=== PATIENT | male | born 1980 | race Caucasian/White ===

== ENCOUNTER 2019-12-21 13:06 | Outpatient (CLI) | payer MEDICARE, MEDICAID, SELFPAY ==
--- NOTE | 2019-12-21 13:15 | XR_ITS ---
WS: [id number] ABDOMEN 1 VIEW(S) HISTORY: Renal calcifications. COMPARISON: 12/18/2018 Normal bowel gas pattern. No suspicious calcifications or masses. No bone abnormality. XR/XR KUB [id number] IMPRESSION: Normal abdomen.
== END 2019-12-21 13:07 | disposition home or self-care (01) ==
PROVIDERS: Visit Provider Nurse Practitioner Family
DX: N20.0 Calculus of kidney (principal)
CPT/HCPCS: 74018; 80053; 81001; 87077; 87086; 87186

== ENCOUNTER → 2020-01-26 14:05 | Outpatient (BNVA) | payer MEDICARE, MEDICAID, SELFPAY | PROVIDERS: Visit Provider Nurse Practitioner Family | DX: N30.00 Acute cystitis without hematuria (principal) | CPT/HCPCS: 80053; 81001; 87077; 87086; 87186 ==

== ENCOUNTER → 2020-05-23 12:22 | Outpatient (BNVA) | payer MEDICARE, MEDICAID, SELFPAY | PROVIDERS: PCP Nurse Practitioner Family; Visit Provider Internal Medicine Cardiovascular Disease | DX: E78.5 Hyperlipidemia, unspecified (principal) | CPT/HCPCS: 80061; 80076 ==

== ENCOUNTER 2020-10-08 15:18 | Emergency (ER) | payer MEDICARE, MEDICAID, SELFPAY ==
[2020-10-08 15:38] VITALS: BP 182/123; PULSE 61; RESP 18; TEMP 37.2; O2SAT 96; BMI 49.8
--- NOTE | 2020-10-08 16:03 | CTR_ITS ---
PROCEDURE INFORMATION: Exam: CT Abdomen And Pelvis Without Contrast Exam date and time: 10/08/2020 4:30 PM Age: 40 years old Clinical indication: Abdominal pain; Left lower quadrant (llq); Patient HX: C/O llq/l flank pain w HX of stones; Additional info: Left flank pain, HX of stones TECHNIQUE: Imaging protocol: Computed tomography of the abdomen and pelvis without contrast. Radiation optimization: All CT scans at this facility use at least one of these dose optimization techniques: automated exposure control; mA and/or kV adjustment per patient size (includes targeted exams where dose is matched to clinical indication); or iterative reconstruction. COMPARISON: CT Abdomen/Pelvis Renal [id number] 07/25/2016 9:55 AM RADIATION DOSE METRICS: Total DLP (mGy-cm): 2118.73 FINDINGS: Liver: Normal. No mass. Gallbladder and bile ducts: Normal. No calcified stones. No ductal dilation. Pancreas: Normal. No ductal dilation. Spleen: Normal. No splenomegaly. Adrenal glands: Normal. No mass. Kidneys and ureters: Small nonobstructing stone in the upper pole of the left kidney. Tiny nonobstructing stone in the lower pole of the right kidney. No hydronephrosis. No perinephric inflammation. Stomach and bowel: Diverticulosis coli. No focal inflammatory wall thickening of bowel loops. Negative for bowel obstruction or perforation. Appendix: Unremarkable appendix. Intraperitoneal space: No mesenteric inflammation. Vasculature: Unremarkable. No abdominal aortic aneurysm. Lymph nodes: Unremarkable. No enlarged lymph nodes. Urinary bladder: Unremarkable as visualized. Reproductive: Unremarkable as visualized. Bones/joints: Unremarkable. No acute fracture. Soft tissues: Paraspinal muscles are unremarkable. Ventral abdominal wall intact. CT/CT kidney stone [id number] IMPRESSION: 1. No acute pathology within the abdomen or pelvis identified. 2. Small nonobstructing bilateral kidney stones. Radiation Dose CTDIVOL = (mGy): DLP = 2118.73 (mGy-cm)
--- NOTE | 2020-10-08 16:45 | W.ED.MALEGU ---
Documented by User: LUANA Maxwell 10/08/20 16:48 HPI - Male Genitourinary General: Chief complaint: Urogenital-Male Stated complaint: suspects kidney stones Time Seen by Provider: 10/08/20 15:48 History of Present Illness: HPI Narrative: Patient complains about left flank pain rating down left testicle. Abdominal discomfort. Says gone on for since this morning. Said he is not had any hematuria. Says he has a history of kidney stones. Denies any nausea problems with his bowels but has had bowel movements that have felt uncomfortable. He denies any fever chills. No problems with urination MD Complaint: other (Flank pain) Onset (ago): hour(s) Duration: constant Location: left testicle and left flank Severity: moderate Severity scale (1-10): 6 Quality: dull Relieving factors: none Exacerbating factors: none Associated symptoms: Deny nausea or vomiting Review of Systems Const: Denies: fever(s), chills or body aches Eyes: Denies: change in vision or blurry vision ENMT: Denies: throat pain or nasal congestion Card: Denies: chest pain or dyspnea on exertion Resp: Denies: dyspnea, productive cough or non-productive cough GI: Reports: abdominal pain; Denies: nausea or vomiting : Reports: flank pain (Left side); Denies: difficulty urinating Musc: Denies: extremity pain Skin/Breast: Denies: rash Neuro: Denies: headache(s) Psych: Denies: anxiety or depression Donal/Lymph: Denies: easy bruising PFSH ED PFSH: Medical History Acute cystitis ASHD (arteriosclerotic heart disease) Atypical chest pain Chronic back pain Dyslipidemia GERD (gastroesophageal reflux disease) Gross hematuria Hyperlipidemia Hypertension Morbid obesity Urolithiasis Surgical History H/O eye surgery H/O knee surgery H/O lithotripsy Family History Mother , 52 CAD (coronary artery disease) Cancer lung, colon Father , 60 Cancer CAD (coronary artery disease) Hypertension Other Lung disease Stroke Denies family history of Anesthesia complication Bleeding disorder Social History Smoking and tobacco status: former smoker Alcohol intake: never Marital status: Current occupational status: disabled History of recent travel: No Physical Exam Narrative: EXAM NARRATIVE: Obese gentleman with tenderness in the abdomen left flank hard to reproduce pain due to size Const: COMMON NORMALS: no acute distress, average body habitus and patient oriented x3 HENMT: COMMON NORMALS: normocephalic HEAD & SCALP: normal to inspection and normocephalic FACE & SINUS: normal facial exam Eye: COMMON NORMALS: conjunctivae normal GENERAL EYE: appearance normal, both eyes and all related structures CONJUNCTIVA: Yes conjunctivae normal Neck/C-Spine: COMMON NORMALS: no JVD Chest: COMMONS NORMALS: normal inspection of the chest Resp: COMMON NORMALS: normal respiratory effort and clear to auscultation bilaterally AUSCULTATION: clear to auscultation bilaterally Cardio: COMMON NORMALS: no JVD, regular rate and regular rhythm RATE: regular rate RHYTHM: regular rhythm GI: COMMON NORMALS: Normal to inspection, nondistended, normoactive bowel sounds present PALPATION: Yes Tenderness to palpation present (GI) Details: LLQ : BLADDER/KIDNEY EXAM: Yes CVA tenderness on the left Back/Pelvis: GENERAL BACK: Yes CVA tenderness Extremity: COMMON NORMALS: normal to inspection and full ROM Neuro: COMMON NORMALS: patient oriented x3 Course Vital Signs: Vital signs: Vital Signs Temperature 98.9 F 10/08/20 15:38 Pulse Rate 56 L 10/08/20 18:08 Respiratory Rate 16 10/08/20 18:08 Blood Pressure 154/73 10/08/20 18:08 Pulse Oximetry 97 10/08/20 18:08 MDM - Male Lab Data: Labs: Lab Results 10/08/20 10/08/20 10/08/20 Range/Units 14:40 16:25 16:25 WBC 10.9 H (4.0-10.0) 10^3/ uL RBC 5.89 H (4.1-5.3) 10^6/u L Hgb 16.8 H (11.7-16.6) g/dL Hct 52.3 H (42.0-52.0) % MCV 88.8 (80-94) fL MCH 28.5 (28.0-34.0) pg MCHC 32.1 (30.0-36.0) g/dL RDW 13.2 (12.1-15.1) % Plt Count 386 (130-400) 10^3/c mm MPV 11.3 H (7.4-10.4) fL Neut % (Auto) 63.1 % Lymph % (Auto) 24.9 % [place] % (Auto) 7.7 % Eos % (Auto) 3.2 % Baso % (Auto) 0.7 % Neut # (Auto) 6.85 (1.8-7.7) 10^3/u L Lymph # (Auto) 2.7 (0.8-4.8) 10^3/u L [place] # (Auto) 0.8 (0.2-0.9) 10^3/u L Eos # (Auto) 0.4 (0.0-0.8) 10^3/u L Baso # (Auto) 0.1 (0.0-0.1) 10^3/u L Nucleated RBC % (a uto) 0 % Nucleated RBCs # 0.0 /100WBC Sodium 136 (136-145) mmol/L Potassium 3.7 (3.5-5.1) mmol/L Chloride 99 (98-107) mmol/L Carbon Dioxide 30 H (22-29) mmol/L Anion Gap 10.7 (5-19) BUN 10 (6-20) mg/dL Creatinine 0.7 (0.7-1.2) mg/dL GFR Calculation 124.9 (90-130) mL/min Glucose 83 (65-115) mg/dL Calculated Osmolal ity 280 L (285-295) mOsm/k g Calcium 9.2 (8.5-10.5) mg/dL Total Bilirubin 0.5 (0.15-1.2) mg/dL AST 22 (0-40) U/L ALT 28 (0-41) U/L Alkaline Phosphata se 84 (40-130) IU/L Total Protein 7.4 (6.6-8.7) g/dL Albumin 4.1 (3.5-5.2) g/dL Globulin 3.3 (1.3-4.6) g/dL Lipase 23 (13-60) U/L Urine Color Yellow (Yellow) Urine Appearance Clear (CLEAR) Urine pH 8 H (5-7) Ur Specific Gravit y 1.020 (1.005-1.030) Urine Protein Neg (Negative) Urine Glucose (UA) Norm (Normal) Urine Ketones Negative (Negative) Urine Blood Neg (Negative) Urine Nitrate Negative (Negative) Urine Bilirubin Neg (Negative) Prot Sulfosalicyli c Acd Negative (Negative) Urine Urobilinogen Norm (Negative) mg/dL Ur Leukocyte Emilia ase Negative (Negative) Discharge Plan Discharge Patient Disposition: Home Clinical Impression: Abdominal pain Qualifiers: Abdominal location: lower abdomen, unspecified Qualified Code(s): R10.30 - Lower abdominal pain, unspecified Condition: Stable Prescriptions: No Action ibuprofen 200 mg tablet 200 mg PO Q6H PRNRF: 0 Dexilant 30 mg capsule,biphase delayed releas 30 mg PO ONCE RF: 0 celecoxib 200 mg capsule 200 mg PO BID RF: 0 metoclopramide HCl 10 mg tablet 10 mg PO Q6H PRNRF: 0 phenazopyridine [Pyridium] 200 mg tablet 200 mg PO TID PRN (Reason: pain) Qty: 9 RF: 0 amlodipine 5 mg tablet 5 mg PO BID Qty: 180 RF: 3 chlorthalidone 25 mg tablet 25 mg PO QDAY Qty: 90 RF: 3 spironolactone 25 mg tablet 25 mg PO DAILY Qty: 180 RF: 2 hydralazine 100 mg tablet 100 mg PO BID Qty: 180 RF: 3 doxycycline hyclate 100 mg capsule 100 mg PO BID Qty: 28 RF: 0 isosorbide dinitrate 30 mg tablet See Rx Instructions .ROUTE .COMPLEX Qty: 180 RF: 3 carvedilol 25 mg tablet 25 mg PO BID Qty: 180 RF: 3 simvastatin 20 mg tablet See Rx Instructions .ROUTE .COMPLEX Qty: 90 RF: 3 Discharge Orders: Discharge ED (Routine); Ordered 10/08/20 Ordered By: Silvestre Ramos Referrals: Manuelito Carpio NP [Primary Care Provider] - Discharge Diet: Advance as tolerated Discharge Activity: Resume usual activity Patient Instructions: Abdominal Pain (ED) Activity Restrictions/Additional Instructions: Follow-up with medical provider as directed in 7 to 10 days for reevaluation. Continue taking all home medications as prescribed. Return to the ER or your medical provider if condition worsens. Please read and understand discharge instructions. If any questions, please ask. Sign Out Sign Out Data: Patient Sign Out occurred on 10/08/20 at 17:35. Patient's care was discussed, and care was transferred from to ROLY Salcido. Coding Level of Care Code ED Mri Manager for Chg Fwd Exam Comprehensive Documented by User: ROLY Salcido 10/09/20 01:22 HPI - Male Genitourinary General: Chief complaint: Urogenital-Male Stated complaint: suspects kidney stones Time Seen by Provider: 10/08/20 15:48 PFSH ED PFSH: Medical History Acute cystitis ASHD (arteriosclerotic heart disease) Atypical chest pain Chronic back pain Dyslipidemia GERD (gastroesophageal reflux disease) Gross hematuria Hyperlipidemia Hypertension Morbid obesity Urolithiasis Surgical History H/O eye surgery H/O knee surgery H/O lithotripsy Family History Mother , 52 CAD (coronary artery disease) Cancer lung, colon Father , 60 Cancer CAD (coronary artery disease) Hypertension Other Lung disease Stroke Denies family history of Anesthesia complication Bleeding disorder Social History Smoking and tobacco status: former smoker Alcohol intake: never Marital status: Current occupational status: disabled History of recent travel: No Course Vital Signs: Vital signs: Vital Signs Temperature 98.9 F 10/08/20 15:38 Pulse Rate 56 L 10/08/20 18:08 Respiratory Rate 16 10/08/20 18:08 Blood Pressure 154/73 10/08/20 18:08 Pulse Oximetry 97 10/08/20 18:08 MDM - Male MDM Narrative: Medical decision making narrative: I took over patient case at 5 PM from [facility]. Patient comes to the ED with abdominal pain. Patient has a history of kidney stones. Left lower quadrant tenderness upon abdominal exam. White blood cell count 10.9 rest of CBC and CMP were unremarkable. UA unremarkable. Lipase in normal range. CT of abdomen shows no acute findings. Patient's abdominal pain improved with Toradol and IV fluids. Patient was diagnosed with abdominal pain and discharged home. Is told to follow-up with PCP in 7 to 10 days for reevaluation. Return to ED precautions given. Patient understood and agree with plan. Lab Data: Attestation: I reviewed the patient's lab results. Labs: Lab Results 10/08/20 10/08/20 10/08/20 Range/Units 14:40 16:25 16:25 WBC 10.9 H (4.0-10.0) 10^3/ uL RBC 5.89 H (4.1-5.3) 10^6/u L Hgb 16.8 H (11.7-16.6) g/dL Hct 52.3 H (42.0-52.0) % MCV 88.8 (80-94) fL MCH 28.5 (28.0-34.0) pg MCHC 32.1 (30.0-36.0) g/dL RDW 13.2 (12.1-15.1) % Plt Count 386 (130-400) 10^3/c mm MPV 11.3 H (7.4-10.4) fL Neut % (Auto) 63.1 % Lymph % (Auto) 24.9 % [place] % (Auto) 7.7 % Eos % (Auto) 3.2 % Baso % (Auto) 0.7 % Neut # (Auto) 6.85 (1.8-7.7) 10^3/u L Lymph # (Auto) 2.7 (0.8-4.8) 10^3/u L [place] # (Auto) 0.8 (0.2-0.9) 10^3/u L Eos # (Auto) 0.4 (0.0-0.8) 10^3/u L Baso # (Auto) 0.1 (0.0-0.1) 10^3/u L Nucleated RBC % (a uto) 0 % Nucleated RBCs # 0.0 /100WBC Sodium 136 (136-145) mmol/L Potassium 3.7 (3.5-5.1) mmol/L Chloride 99 (98-107) mmol/L Carbon Dioxide 30 H (22-29) mmol/L Anion Gap 10.7 (5-19) BUN 10 (6-20) mg/dL Creatinine 0.7 (0.7-1.2) mg/dL GFR Calculation 124.9 (90-130) mL/min Glucose 83 (65-115) mg/dL Calculated Osmolal ity 280 L (285-295) mOsm/k g Calcium 9.2 (8.5-10.5) mg/dL Total Bilirubin 0.5 (0.15-1.2) mg/dL AST 22 (0-40) U/L ALT 28 (0-41) U/L Alkaline Phosphata se 84 (40-130) IU/L Total Protein 7.4 (6.6-8.7) g/dL Albumin 4.1 (3.5-5.2) g/dL Globulin 3.3 (1.3-4.6) g/dL Lipase 23 (13-60) U/L Urine Color Yellow (Yellow) Urine Appearance Clear (CLEAR) Urine pH 8 H (5-7) Ur Specific Gravit y 1.020 (1.005-1.030) Urine Protein Neg (Negative) Urine Glucose (UA) Norm (Normal) Urine Ketones Negative (Negative) Urine Blood Neg (Negative) Urine Nitrate Negative (Negative) Urine Bilirubin Neg (Negative) Prot Sulfosalicyli c Acd Negative (Negative) Urine Urobilinogen Norm (Negative) mg/dL Ur Leukocyte Emilia ase Negative (Negative) Imaging Data: CT Abd/Pel: Attestation: I personally reviewed and interpreted this imaging study as follows: Radiologist's impression: [address] [place] [address] CT Scan Report Signed Patient: Gregorio Romero Unit #: [id number] : 1980 Age/Sex: 40 / M ADM Date: 10/08/20 Loc: ER Room/Bed: Attending Dr: Ordering Provider/Ordering MD: Juan Rodriguez Sr, [employer]KER- Date of Service: 10/08/20 Procedure(s): CT kidney stone [id number] Accession Number(s): [id number] Report Number: [id number] PROCEDURE INFORMATION: Exam: CT Abdomen And Pelvis Without Contrast Exam date and time: 10/08/2020 4:30 PM Age: 40 years old Clinical indication: Abdominal pain; Left lower quadrant (llq); Patient HX: C/O llq/l flank pain w HX of stones; Additional info: Left flank pain, HX of stones TECHNIQUE: Imaging protocol: Computed tomography of the abdomen and pelvis without contrast. Radiation optimization: All CT scans at this facility use at least one of these dose optimization techniques: automated exposure control; mA and/or kV adjustment per patient size (includes targeted exams where dose is matched to clinical indication); or iterative reconstruction. COMPARISON: CT Abdomen/Pelvis Renal [id number] 07/25/2016 9:55 AM RADIATION DOSE METRICS: Total DLP (mGy-cm): 2118.73 FINDINGS: Liver: Normal. No mass. Gallbladder and bile ducts: Normal. No calcified stones. No ductal dilation. Pancreas: Normal. No ductal dilation. Spleen: Normal. No splenomegaly. Adrenal glands: Normal. No mass. Kidneys and ureters: Small nonobstructing stone in the upper pole of the left kidney. Tiny nonobstructing stone in the lower pole of the right kidney. No hydronephrosis. No perinephric inflammation. Stomach and bowel: Diverticulosis coli. No focal inflammatory wall thickening of bowel loops. Negative for bowel obstruction or perforation. Appendix: Unremarkable appendix. Intraperitoneal space: No mesenteric inflammation. Vasculature: Unremarkable. No abdominal aortic aneurysm. Lymph nodes: Unremarkable. No enlarged lymph nodes. Urinary bladder: Unremarkable as visualized. Reproductive: Unremarkable as visualized. Bones/joints: Unremarkable. No acute fracture. Soft tissues: Paraspinal muscles are unremarkable. Ventral abdominal wall intact. CT/CT kidney stone [id number] IMPRESSION: 1. No acute pathology within the abdomen or pelvis identified. 2. Small nonobstructing bilateral kidney stones. Radiation Dose CTDIVOL = (mGy): DLP = 2118.73 (mGy-cm) Dictated By: Dante Thompson Signed By: Dante Thompson Signed Date/Time: 10/08/201649 DD/ 47 Discharge Plan Discharge Patient Disposition: Home Clinical Impression: Abdominal pain Qualifiers: Abdominal location: lower abdomen, unspecified Qualified Code(s): R10.30 - Lower abdominal pain, unspecified Condition: Stable Prescriptions: No Action ibuprofen 200 mg tablet 200 mg PO Q6H PRNRF: 0 Dexilant 30 mg capsule,biphase delayed releas 30 mg PO ONCE RF: 0 celecoxib 200 mg capsule 200 mg PO BID RF: 0 metoclopramide HCl 10 mg tablet 10 mg PO Q6H PRNRF: 0 phenazopyridine [Pyridium] 200 mg tablet 200 mg PO TID PRN (Reason: pain) Qty: 9 RF: 0 amlodipine 5 mg tablet 5 mg PO BID Qty: 180 RF: 3 chlorthalidone 25 mg tablet 25 mg PO QDAY Qty: 90 RF: 3 spironolactone 25 mg tablet 25 mg PO DAILY Qty: 180 RF: 2 hydralazine 100 mg tablet 100 mg PO BID Qty: 180 RF: 3 doxycycline hyclate 100 mg capsule 100 mg PO BID Qty: 28 RF: 0 isosorbide dinitrate 30 mg tablet See Rx Instructions .ROUTE .COMPLEX Qty: 180 RF: 3 carvedilol 25 mg tablet 25 mg PO BID Qty: 180 RF: 3 simvastatin 20 mg tablet See Rx Instructions .ROUTE .COMPLEX Qty: 90 RF: 3 Discharge Orders: Discharge ED (Routine); Ordered 10/08/20 Ordered By: Silvestre Ramos Referrals: Manuelito Carpio NP [Primary Care Provider] - Discharge Diet: Advance as tolerated Discharge Activity: Resume usual activity Patient Instructions: Abdominal Pain (ED) Activity Restrictions/Additional Instructions: Follow-up with medical provider as directed in 7 to 10 days for reevaluation. Continue taking all home medications as prescribed. Return to the ER or your medical provider if condition worsens. Please read and understand discharge instructions. If any questions, please ask. Sign Out Sign Out Data: Patient Sign Out occurred on 10/08/20 at 17:35. Patient's care was discussed, and care was transferred from to ROLY Salcido. Coding Level of Care Code ED Mri Manager for Alejandro Fwmanolo Exam Comprehensive
[2020-10-08 16:50] VITALS: BP 161/79; PULSE 59; O2SAT 97
[2020-10-08] MEDS: ketorolac 30 mg/mL INJ IVP (16:57)
[2020-10-08] MEDS: sodium chloride 0.9% 1,000 ML 999 ML IV (16:58)
[2020-10-08 17:10] LABS: Basophils # 0.1 10^3/uL (0.0-0.1); Basophils % 0.7 %; Eosinophils # 0.4 10^3/uL (0.0-0.8); Eosinophils % 3.2 %; Hematocrit 52.3 % (42.0-52.0); Hemoglobin 16.8 g/dL (11.7-16.6); Lymphocytes # 2.7 10^3/uL (0.8-4.8); Lymphocytes % 24.9 %; Mean Corpuscular HGB Conc 32.1 g/dL (30.0-36.0); Mean Corpuscular Hemoglobin 28.5 pg (28.0-34.0); Mean Corpuscular Volume 88.8 fL (80-94); Mean Platelet Volume 11.3 fL (7.4-10.4); Monocytes # 0.8 10^3/uL (0.2-0.9); Monocytes % 7.7 %; Neutrophils # 6.85 10^3/uL (1.8-7.7); Neutrophils % 63.1 %; Nucleated Red Blood Cells % 0 %; Platelet Count 386 10^3/cmm (130-400); Red Blood Count 5.89 10^6/uL (4.1-5.3); Red Cell Distribution Width 13.2 % (12.1-15.1); White Blood Count 10.9 10^3/uL (4.0-10.0)
[2020-10-08 17:11] LABS: Alanine Aminotransferase 28 U/L (0-41); Albumin Level 4.1 g/dL (3.5-5.2); Alkaline Phosphatase 84 IU/L (40-130); Anion Gap 10.7 (5-19); Aspartate Amino Transferase 22 U/L (0-40); Blood Urea Nitrogen 10 mg/dL (6-20); Calcium 9.2 mg/dL (8.5-10.5); Carbon Dioxide 30 mmol/L (22-29); Chloride 99 mmol/L (98-107); Globulin 3.3 g/dL (1.3-4.6); Glomerular Filtration Rate 124.9 mL/min (90-130); Glucose 83 mg/dL (65-115); Lipase 23 U/L (13-60); Osmolality Calculated 280 mOsm/kg (285-295); Potassium 3.7 mmol/L (3.5-5.1); Sodium 136 mmol/L (136-145); Total Bilirubin 0.5 mg/dL (0.15-1.2); Total Protein 7.4 g/dL (6.6-8.7)
[2020-10-08 17:20] VITALS: BP 160/85; PULSE 56; O2SAT 95
[2020-10-08 17:49] LABS: Add Urine Microscopic? NO; Bilirubin Urine Neg (Negative); Blood Urine Neg (Negative); Glucose Urine UA Norm (Normal); Ketones Urine Negative (Negative); Leukocyte Esterase Urine Negative (Negative); Nitrate Urine Negative (Negative); Protein Urine Neg (Negative); Sulfosalicylic Acid Urine Negative (Negative); Urine Appearance Clear (CLEAR); Urine Color Yellow (Yellow); Urobilinogen Urine Norm (Negative); pH Urine 8 (5-7)
[2020-10-08 18:08] VITALS: BP 154/73; PULSE 56; RESP 16; O2SAT 97
== END 2020-10-08 18:09 | disposition home or self-care (01) ==
PROVIDERS: Nurse Practitioner Family; Emergency Provider Physician Assistant; PCP Nurse Practitioner Family
DX: R10.30 Lower abdominal pain, unspecified (principal); E78.5 Hyperlipidemia, unspecified; I10 Essential (primary) hypertension; Z87.891 Personal history of nicotine dependence
CPT/HCPCS: 74176; 80053; 81003; 83690; 85025; 96361; 96374; 99283; J1885; J7030

== ENCOUNTER 2020-10-17 13:57 | Outpatient (CLI) | payer MEDICARE, MEDICAID, SELFPAY ==
--- NOTE | 2020-10-17 13:45 | XR_ITS ---
WS: [id number] Exam: XR KUB [id number] Date/Time of Exam: 10/17/2020 2:08 PM Reason For Exam: UROLITHIASIS No bowel obstruction or free air. Visualized organ margins are intact. Nonspecific 3 mm left pelvic c alcification noted just below the left SI joint. Bony structures are unremarkable. XR/XR KUB [id number] IMPRESSION: 1. No acute abdominal process. 2. Nonspecific 3 mm left pelvic calcification.
== END 2020-10-17 13:58 | disposition home or self-care (01) ==
LOC: RAD 13:59
PROVIDERS: PCP Nurse Practitioner Family; Visit Provider Urology
DX: N20.9 Urinary calculus, unspecified (principal)
CPT/HCPCS: 74018; 81003

== ENCOUNTER 2020-10-22 01:51 | Emergency (ER) | payer MEDICARE, MEDICAID, SELFPAY ==
[2020-10-22] VITALS (9 sets, daily range): BP systolic 112–149; BP diastolic 64–85; PULSE 63–75; RESP 14–28; TEMP 36.9; O2SAT 90–95; BMI 49.8
[2020-10-22 02:38] LABS: Basophils # 0.1 10^3/uL (0.0-0.1); Basophils % 0.8 %; Eosinophils # 0.4 10^3/uL (0.0-0.8); Eosinophils % 2.9 %; Hematocrit 48.1 % (42.0-52.0); Hemoglobin 15.4 g/dL (11.7-16.6); Lymphocytes # 3.7 10^3/uL (0.8-4.8); Lymphocytes % 27.1 %; Mean Corpuscular Hemoglobin 28.9 pg (28.0-34.0); Mean Corpuscular Volume 90.2 fL (80-94); Mean Platelet Volume 11.6 fL (7.4-10.4); Monocytes % 7.3 %; Neutrophils # 8.31 10^3/uL (1.8-7.7); Neutrophils % 61.5 %; Nucleated Red Blood Cells % 0 %; Platelet Count 369 10^3/cmm (130-400); Red Blood Count 5.33 10^6/uL (4.1-5.3); Red Cell Distribution Width 13.2 % (12.1-15.1); White Blood Count 13.5 10^3/uL (4.0-10.0)
--- NOTE | 2020-10-22 02:52 | CTR_ITS ---
PROCEDURE INFORMATION: Exam: CT Abdomen And Pelvis With Contrast Exam date and time: 10/22/2020 3:05 AM Age: 40 years old Clinical indication: Abdominal pain; Localized; Left lower quadrant (llq); Patient HX: Llq pain. Frequent history of nephrolithiasis; Additional info: Abd pain TECHNIQUE: Imaging protocol: Computed tomography of the abdomen and pelvis with contrast. Radiation optimization: All CT scans at this facility use at least one of these dose optimization techniques: automated exposure control; mA and/or kV adjustment per patient size (includes targeted exams where dose is matched to clinical indication); or iterative reconstruction. Contrast material: OMNI 300; Contrast volume: 95 ml; Contrast route: INTRAVENOUS (IV); COMPARISON: CT kidney stone [id number] 10/08/2020 4:50 PM RADIATION DOSE METRICS: Total DLP (mGy-cm): 2122.96 FINDINGS: Liver: Normal. No mass. Gallbladder and bile ducts: Normal. No calcified stones. No ductal dilation. Pancreas: Normal. No ductal dilation. Spleen: Normal. No splenomegaly. Adrenal glands: Normal. No mass. Kidneys and ureters: A tiny nonobstructing stone is seen in the left kidney. No hydronephrosis. Stomach and bowel: Unremarkable. No obstruction. Diverticulosis of the colon is seen without diverticulitis. Appendix: No evidence of appendicitis. Intraperitoneal space: Unremarkable. No free air. No significant fluid collection. Vasculature: Unremarkable. No abdominal aortic aneurysm. Lymph nodes: Unremarkable. No enlarged lymph nodes. Urinary bladder: Unremarkable as visualized. Reproductive: Unremarkable as visualized. Bones/joints: Degenerative changes are present. No acute fracture. Soft tissues: Unremarkable. CT/CT abdomen pelvis w con* [id number] IMPRESSION: 1. No acute findings. 2. A nonobstructing tiny stone is seen in the left kidney. Negative for hydronephrosis. 3. In diverticulosis of the colon is seen without diverticulitis Radiation Dose CTDIVOL = (mGy): DLP = 2122.96 (mGy-cm)
[2020-10-22 03:12] LABS: Alanine Aminotransferase 25 U/L (0-41); Albumin Level 3.5 g/dL (3.5-5.2); Alkaline Phosphatase 77 IU/L (40-130); Anion Gap 13.3 (5-19); Aspartate Amino Transferase 20 U/L (0-40); Blood Urea Nitrogen 12 mg/dL (6-20); C Reactive Protein 16.7 mg/L (0.0-4.9); Calcium 8.6 mg/dL (8.5-10.5); Carbon Dioxide 25 mmol/L (22-29); Chloride 100 mmol/L (98-107); Creatinine Clr Calc Pharmacy 225.1104; Globulin 3.1 g/dL (1.3-4.6); Glomerular Filtration Rate 107.1 mL/min (90-130); Glucose 118 mg/dL (65-115); Lipase 25 U/L (13-60); Osmolality Calculated 281 mOsm/kg (285-295); Potassium 3.3 mmol/L (3.5-5.1); Sodium 135 mmol/L (136-145); Total Bilirubin 0.3 mg/dL (0.15-1.2); Total Protein 6.6 g/dL (6.6-8.7)
[2020-10-22] MEDS: iohexol 300 mg/mL 100 mL Btl IV (03:13)
[2020-10-22 03:14] LABS: Lactate (Lactic Acid level) 1.4 mmol/L (0.5-2.2)
[2020-10-22 03:16] LABS: Alcohol Level < 10 mg/dL (0-10)
[2020-10-22 03:18] LABS: INR 1.05 (0.8-1.2)
--- NOTE | 2020-10-22 03:24 | ED_ITS ---
HPI - Abdominal Pain General: Chief Complaint: Abdominal Pain Stated Complaint: n,v Time Seen by Provider: 10/22/20 02:03 History of Present Illness: HPI narrative: 40-year-old male presents with sudden onset of belly pain this morning. About an hour prior to arrival. He complains of epigastric pain radiating into his chest. He states that he vomited 3 times, and there was blood in the contents of the vomitus. He says there were small clots present. No diarrhea, no blood in the stool. No fever. MD elicited complaint: abdominal pain Pertinent past history: other Onset (ago): hour(s) Pain Consistency: constant Location: Epigastric Severity: moderate Quality: stabbing Radiation: chest Migration to: no migration Exacerbating factors: movement Relieving factors: nothing Associated Symptoms: Reports hematemesis, nausea and vomiting; Denies diarrhea, fever(s), hematochezia, hematuria and syncope Review of Systems Const: Denies: fever(s) ENMT: Denies: throat pain Card: Reports: chest pain; Denies: palpitations, irregular heart rhythm or syncope Resp: Denies: dyspnea, productive cough or non-productive cough GI: Reports: nausea, vomiting and hematemesis; Denies: diarrhea or hematochezia : Denies: hematuria Neuro: Denies: headache(s) PFSH ED PFSH: Medical History Acute cystitis ASHD (arteriosclerotic heart disease) Atypical chest pain Chronic back pain Dyslipidemia GERD (gastroesophageal reflux disease) Gross hematuria Hyperlipidemia Hypertension Morbid obesity Prostatitis Urolithiasis Surgical History H/O eye surgery H/O knee surgery H/O lithotripsy Family History Mother , 52 CAD (coronary artery disease) Cancer lung, colon Father , 60 Cancer CAD (coronary artery disease) Hypertension Other Lung disease Stroke Denies family history of Anesthesia complication Bleeding disorder Social History Smoking and tobacco status: former smoker Alcohol intake: never Marital status: Current occupational status: disabled History of recent travel: No Physical Exam Const: GENERAL APPEARANCE: well developed ORIENTATION/CONSCIOUSNESS: Yes oriented to person, Yes oriented to place and Yes oriented to time HENMT: COMMON NORMALS: normocephalic, external ears normal and Normal external nose present HEAD & SCALP: normocephalic FACE & SINUS: normal facial exam NOSE: Normal external nose present and No nasal discharge present EXTERNAL EAR: Yes external ears normal Eye: COMMON NORMALS: Equal, round and reactive pupils present, EOMs intact bilaterally and conjunctivae normal EYELID: eyelids normal CONJUNCTIVA: Yes conjunctivae normal PUPIL: Yes Equal, round and reactive pupils present Neck/C-Spine: GENERAL: No tracheal deviation Chest: COMMONS NORMALS: normal inspection of the chest CHEST: No tenderness Resp: COMMON NORMALS: clear to auscultation bilaterally EFFORT & INSPECTION: No tachypneic, No respiratory distress, No retractions, No uses accessory muscles and No tracheal deviation AUSCULTATION: clear to auscultation bilaterally, no rhonchi, no wheezes and lung sounds not diminished Cardio: COMMON NORMALS: regular rate and regular rhythm RATE: regular rate RHYTHM: regular rhythm HEART SOUNDS: no murmurs PERIPHERAL PULSES: radial pulses present GI: COMMON NORMALS: Soft to palpation INSPECTION: No abdominal distension AUSCULTATION: No Hyperactive bowel sounds present and No Hypoactive bowel soun ds present PALPATION: Yes Soft to palpation, Yes Tenderness to palpation present (GI) (Epigastric), No Guarding due to palpation present (GI) and No Rigid due to palpation PERCUSSION: no dullness to percussion and no tympanic to percussion : COMMON NORMALS: Yes no CVA tenderness BLADDER/KIDNEY EXAM: Yes no CVA tenderness Back/Pelvis: COMMON NORMALS: no CVA tenderness Neuro: SENSORIUM/ORIENTATION: Yes oriented to person, Yes oriented to place and Yes oriented to time Psych: COMMON NORMALS: mental status grossly normal Skin: COMMON NORMALS: no rashes or lesions noted GENERAL SKIN EXAM: no rashes or lesions noted Course Vital Signs: Vital signs: Vital Signs Temperature 98.5 F 10/22/20 01:54 Pulse Rate 73 10/22/20 03:31 Respiratory Rate 16 10/22/20 04:09 Blood Pressure 135/64 10/22/20 03:31 Pulse Oximetry 94 10/22/20 04:09 MDM - Abdominal Pain MDM Narrative: Medical decision making narrative: Epigastric pain radiating into the chest in a 40-year-old male who may or may not have vomited blood. His hemoglobin is 15.4. His white blood cell count is elevated at 13.5. His potassium is mildly low at 3.3. CT is pending Patient improved after GI cocktail and pain medication. CT did not reveal any acute finding. Gallbladder and bile ducts are normal. No gastric lining thickening. He has a GI appointment on 11/02. He needs close outpatient follow- up. Lab Data: Labs: Lab Results 10/22/20 10/22/20 10/22/20 Range/Units 02:04 02:04 02:04 WBC 13.5 H (4.0-10.0) 10^3/ uL RBC 5.33 H (4.1-5.3) 10^6/u L Hgb 15.4 (11.7-16.6) g/dL Hct 48.1 (42.0-52.0) % MCV 90.2 (80-94) fL MCH 28.9 (28.0-34.0) pg MCHC 32.0 (30.0-36.0) g/dL RDW 13.2 (12.1-15.1) % Plt Count 369 (130-400) 10^3/c mm MPV 11.6 H (7.4-10.4) fL Neut % (Auto) 61.5 % Lymph % (Auto) 27.1 % Arthur % (Auto) 7.3 % Eos % (Auto) 2.9 % Baso % (Auto) 0.8 % Neut # (Auto) 8.31 H (1.8-7.7) 10^3/u L Lymph # (Auto) 3.7 (0.8-4.8) 10^3/u L Arthur # (Auto) 1.0 H (0.2-0.9) 10^3/u L Eos # (Auto) 0.4 (0.0-0.8) 10^3/u L Baso # (Auto) 0.1 (0.0-0.1) 10^3/u L Nucleated RBC % (a uto) 0 % Nucleated RBCs # 0.0 /100WBC PT (12.1-14.9) SECO NDS INR (0.8-1.2) Sodium 135 L (136-145) mmol/L Potassium 3.3 L (3.5-5.1) mmol/L Chloride 100 (98-107) mmol/L Carbon Dioxide 25 (22-29) mmol/L Anion Gap 13.3 (5-19) BUN 12 (6-20) mg/dL Creatinine 0.8 (0.7-1.2) mg/dL GFR Calculation 107.1 (90-130) mL/min Glucose 118 H (65-115) mg/dL Calculated Osmolal ity 281 L (285-295) mOsm/k g Lactate 1.4 (0.5-2.2) mmol/L Calcium 8.6 (8.5-10.5) mg/dL Total Bilirubin 0.3 (0.15-1.2) mg/dL AST 20 (0-40) U/L ALT 25 (0-41) U/L Alkaline Phosphata se 77 (40-130) IU/L C-Reactive Protein 16.7 H (0.0-4.9) mg/L Total Protein 6.6 (6.6-8.7) g/dL Albumin 3.5 (3.5-5.2) g/dL Globulin 3.1 (1.3-4.6) g/dL Lipase 25 (13-60) U/L Ethyl Alcohol < 10 (0-10) mg/dL 10/22/20 Range/Units 02:04 WBC (4.0-10.0) 10^3/ uL RBC (4.1-5.3) 10^6/u L Hgb (11.7-16.6) g/dL Hct (42.0-52.0) % MCV (80-94) fL MCH (28.0-34.0) pg MCHC (30.0-36.0) g/dL RDW (12.1-15.1) % Plt Count (130-400) 10^3/c mm MPV (7.4-10.4) fL Neut % (Auto) % Lymph % (Auto) % Arthur % (Auto) % Eos % (Auto) % Baso % (Auto) % Neut # (Auto) (1.8-7.7) 10^3/u L Lymph # (Auto) (0.8-4.8) 10^3/u L Arthur # (Auto) (0.2-0.9) 10^3/u L Eos # (Auto) (0.0-0.8) 10^3/u L Baso # (Auto) (0.0-0.1) 10^3/u L Nucleated RBC % (a uto) % Nucleated RBCs # /100WBC PT 14.10 (12.1-14.9) SECO NDS INR 1.05 (0.8-1.2) Sodium (136-145) mmol/L Potassium (3.5-5.1) mmol/L Chloride (98-107) mmol/L Carbon Dioxide (22-29) mmol/L Anion Gap (5-19) BUN (6-20) mg/dL Creatinine (0.7-1.2) mg/dL GFR Calculation (90-130) mL/min Glucose (65-115) mg/dL Calculated Osmolal ity (285-295) mOsm/k g Lactate (0.5-2.2) mmol/L Calcium (8.5-10.5) mg/dL Total Bilirubin (0.15-1.2) mg/dL AST (0-40) U/L ALT (0-41) U/L Alkaline Phosphata se (40-130) IU/L C-Reactive Protein (0.0-4.9) mg/L Total Protein (6.6-8.7) g/dL Albumin (3.5-5.2) g/dL Globulin (1.3-4.6) g/dL Lipase (13-60) U/L Ethyl Alcohol (0-10) mg/dL Discharge Plan Discharge Patient Disposition: Home Clinical Impression: Gastritis Qualifiers: Gastritis type: unspecified gastritis Chronicity: acute Gastritis bleeding: with bleeding Qualified Code(s): K29.01 - Acute gastritis with bleeding Condition: Stable Prescriptions: New Carafate 1 gram tablet 1 g PO Q6H 28 Days Qty: 112 RF: 0 Zofran 4 mg tablet 4 mg PO Q6H PRN (Reason: nausea and vomiting) Qty: 10 RF: 0 No Action ibuprofen 200 mg tablet 200 mg PO Q6H PRNRF: 0 celecoxib 200 mg capsule 200 mg PO BID RF: 0 metoclopramide HCl 10 mg tablet 10 mg PO Q6H PRNRF: 0 phenazopyridine [Pyridium] 200 mg tablet 200 mg PO TID PRN (Reason: pain) Qty: 9 RF: 0 pantoprazole 40 mg tablet,delayed release (DR/EC) 40 mg PO DAILY RF: 0 amlodipine 5 mg tablet 5 mg PO BID Qty: 180 RF: 3 chlorthalidone 25 mg tablet 25 mg PO QDAY Qty: 90 RF: 3 spironolactone 25 mg tablet 25 mg PO DAILY Qty: 180 RF: 2 hydralazine 100 mg tablet 100 mg PO BID Qty: 180 RF: 3 isosorbide dinitrate 30 mg tablet See Rx Instructions .ROUTE .COMPLEX Qty: 180 RF: 3 carvedilol 25 mg tablet 25 mg PO BID Qty: 180 RF: 3 simvastatin 20 mg tablet See Rx Instructions .ROUTE .COMPLEX Qty: 90 RF: 3 Discharge Orders: Discharge ED (Routine); Ordered 10/22/20 Ordered By: Dhruv Fuentes Referrals: Manuelito Carpio NP [Primary Care Provider] - 1-3 days Discharge Diet: Advance as tolerated Discharge Activity: Increase activity as tolerated Patient Instructions: Gastritis (ED) Activity Restrictions/Additional Instructions: Return for worsening pain despite treatment, vomiting liquids or medications, continued blood in the vomit, blood in the stool, shortness of breath, fever greater than 100, other concerning symptoms. Coding Level of Care Code ED Asset Protection Representative for Alejandro Fwd Exam Comprehensive
[2020-10-22] MEDS: lidocaine 2% viscous 15 ML, aluminum-mag hydrox-simethicon 30 ML, sucralfate oral liq 1 GM PO (03:58)
[2020-10-22] MEDS: ondansetron 2 mg/ML SDV 2 mL 4 MG IVP (04:01)
[2020-10-22] MEDS: famotidine 20 mg/2 mL INJ 40 MG IVP (04:04)
[2020-10-22] MEDS: fentaNYL 50 mcg/mL INJ 2mL 100 MCG IVP (04:09)
[2020-10-22 05:17] LABS: Add Urine Microscopic? NO
[2020-10-22 05:18] LABS: Bilirubin Urine Neg (Negative); Blood Urine Neg (Negative); Glucose Urine UA Norm (Normal); Ketones Urine Negative (Negative); Leukocyte Esterase Urine Negative (Negative); Nitrate Urine Negative (Negative); Protein Urine Neg (Negative); Specific Gravity, Urine 1.015 (1.005-1.030); Urine Appearance Clear (CLEAR); Urine Color Yellow (Yellow); Urobilinogen Urine Norm (Negative); pH Urine 6 (5-7)
== END 2020-10-22 05:03 | disposition home or self-care (01) ==
PROVIDERS: Emergency Provider Emergency Medicine; PCP Nurse Practitioner Family
DX: K29.01 Acute gastritis with bleeding (principal); E78.5 Hyperlipidemia, unspecified; I10 Essential (primary) hypertension; Z87.891 Personal history of nicotine dependence
CPT/HCPCS: 74177; 80053; 80307; 81003; 83605; 83690; 85025; 85610; 86140; 96374; 96375; 99283; J2405; J3010; J3490; Q9967

== ENCOUNTER → 2020-11-08 13:22 | Outpatient (BNVA) | payer MEDICARE, MEDICAID, SELFPAY | PROVIDERS: PCP Nurse Practitioner Family; Visit Provider Urology | DX: N41.9 Inflammatory disease of prostate, unspecified (principal); N30.00 Acute cystitis without hematuria | CPT/HCPCS: 81003; 87077; 87086; 87184 ==

== ENCOUNTER → 2020-11-18 11:33 | Outpatient (BNVA) | payer MEDICARE, MEDICAID, SELFPAY | PROVIDERS: PCP Nurse Practitioner Family; Visit Provider Surgery | DX: K21.9 Gastro-esophageal reflux disease without esophagitis (principal); K62.5 Hemorrhage of anus and rectum; Z20.822 Contact with and (suspected) exposure to COVID-19 | CPT/HCPCS: 87635 ==

== ENCOUNTER 2020-11-23 06:07 | Day surgery (SDC) | payer MEDICARE, MEDICAID, SELFPAY ==
[2020-11-21 12:32] VITALS: BMI 49.8
[2020-11-23 06:18] VITALS: BP 107/105; PULSE 76; RESP 16; TEMP 36.3; O2SAT 96
--- NOTE | 2020-11-23 06:34 | W.PM.OPSUD ---
Surgery/Procedure H&P Update DATE OF PROCEDURE: November 23, 2020 DATE H&P PERFORMED: 11/02/20 H&P UPDATE INFORMATION: I have reviewed H&P completed within last 30 days, I have examined patient prior to procedure and No changes to prior documentation PREOP DIAGNOSIS: Hematemesis and bleeding per rectum PRIMARY INDICATION FOR PROCEDURE: The same PLANNED PROCEDURE: Operation Date: 11/23/20 07:00 Proposed Procedures p EGD/colon [id number] K21.9 K62.5(Not Applicable) - Taiwo Odom MD s Colonoscopy(Not Applicable) - Taiwo Odom MD
[2020-11-23] MEDS: sodium chloride 0.9% 1,000 ML 30 ML IV (06:45)
--- NOTE | 2020-11-23 06:53 | ANES.PREANE2 ---
Pre-Anesthetic Assessment Pre-Anesthetic Assessment: Height/Weight: Height 1.96 m Weight 190.509 kg Temp Pulse Resp BP Pulse Ox 97.4 F L 76 16 107/105 96 11/23/20 06:18 11/23/20 06:18 11/23/20 06:18 11/23/20 06:18 11/23/20 06:18 Preop Diagnosis: Hematemesis and bleeding per rectum Proposed Procedure: Operation Date: 11/23/20 07:00 Proposed Procedures p EGD/colon [id number] K21.9 K62.5(Not Applicable) - Taiwo Odom MD s Colonoscopy(Not Applicable) - Taiwo Odom MD Familial anesthetic complications: none Was Beta Reba taken within 24 hours: Yes Was Clonidine taken within 24 hours: N/A Last intake: Intake Last Liquid Date 11/22/20 Last Solid Date 11/21/20 Social: Social History: No alcohol and No tobacco Comment: stop 2003 Exam: Pre-Anes Outpt Exam: alert, oriented x 3, clear to auscultation bilaterally and regular rate & rhythm Airway: Submandibular: WNL Cervical ROM: WNL MP: 3 Dentition: Full Pulmonary: Pulmonary: COPD, Cough (chronic bronchitis) and Sleep apnea (CPAP) CV/HEM: CV/HEM: CHF, HTN and Murmur (ASD) : : None reported Hepatic: Hepatic: None reported GI: GI: GERD Metabolic: Metabolic: Morbid obesity Neuropsych: Neuropsych: None reported Anesthetic Plan: ASA status: 3 Anesthesia: MAC Meds/Allergies Current Medications: Current Medications Generic Name Dose Route Start Last Admin Trade Name Freq PRN Reason Stop Dose Admin Sodium Chloride 1,000 mls @ 30 ml s/hr 11/23/20 06:15 11/23/20 06:45 Sodium Chloride 0.9% IV 30 mls/hr .Q24H SHARMILA Administration PFSH Anesthesia PFSH: Medical History Acute cystitis ASHD (arteriosclerotic heart disease) Atypical chest pain Chronic back pain Dyslipidemia GERD (gastroesophageal reflux disease) Gross hematuria Hyperlipidemia Hypertension Morbid obesity Prostatitis Urolithiasis Surgical History H/O eye surgery H/O knee surgery H/O lithotripsy Family History Mother , 52 CAD (coronary artery disease) Cancer lung, colon Father , 60 Cancer CAD (coronary artery disease) Hypertension Other Lung disease Stroke Denies family history of Anesthesia complication Bleeding disorder Social History Smoking and tobacco status: former smoker Alcohol intake: never Marital status: Current occupational status: disabled History of recent travel: No Data Anesthesia Cardiac Studies: No Data to Display
[2020-11-23 08:04] VITALS: BP 118/59; PULSE 61; RESP 16; TEMP 36.1; O2SAT 94
[2020-11-23] MEDS: cetacaine Spray 5 gm Can 1 SPRAY XX (08:08)
--- NOTE | 2020-11-23 09:13 | ANE.PACU2 ---
Inpatient post-anesthesia follow up: Airway intact: Yes Vital signs: Temperature 97 F Pulse Rate 61 Respiratory Rate 16 Blood Pressure 118/59 Pulse Oximetry 94 Oxygen Delivery Me thod Room Air Oxygen Flow Rate Fraction of Inspir ed Oxygen Hydration adequate: Yes Nausea and vomiting: No Pain level: 1 Mental status: Baseline
== END 2020-11-23 08:40 | disposition home or self-care (01) ==
PROVIDERS: PCP Nurse Practitioner Family; Visit Provider Surgery
PROC: 0DJ08ZZ Inspection of Upper Intestinal Tract, Via Natural or Artificial Opening Endoscopic (ICD-10-PCS; CPT 43235; principal; 2020-11-23 07:00)
PROC: 0DJD8ZZ Inspection of Lower Intestinal Tract, Via Natural or Artificial Opening Endoscopic (ICD-10-PCS; CPT 45378; 2020-11-23 07:00)
DX: K92.0 Hematemesis (principal); K62.5 Hemorrhage of anus and rectum; K57.30 Diverticulosis of large intestine without perforation or abscess without bleeding; K31.7 Polyp of stomach and duodenum; K21.00 Gastro-esophageal reflux disease with esophagitis, without bleeding; K29.70 Gastritis, unspecified, without bleeding; E78.5 Hyperlipidemia, unspecified; K21.9 Gastro-esophageal reflux disease without esophagitis; E66.01 Morbid (severe) obesity due to excess calories; Z68.42 Body mass index [BMI] 45.0-49.9, adult; Z80.0 Family history of malignant neoplasm of digestive organs; J44.9 Chronic obstructive pulmonary disease, unspecified; I11.0 Hypertensive heart disease with heart failure; I50.9 Heart failure, unspecified; Z87.891 Personal history of nicotine dependence
CPT/HCPCS: 43239; 45380; 88305; 96360; 96361; J2405; J2704; J7030

== ENCOUNTER → 2020-12-05 12:56 | Outpatient (BNVA) | payer MEDICARE, MEDICAID, SELFPAY | PROVIDERS: PCP Nurse Practitioner Family; Visit Provider Nurse Practitioner Family | DX: N20.9 Urinary calculus, unspecified (principal); N41.9 Inflammatory disease of prostate, unspecified | CPT/HCPCS: 81003 ==

== ENCOUNTER 2021-01-25 13:40 | Outpatient (CLI) | payer MEDICARE, MEDICAID, SELFPAY ==
--- NOTE | 2021-01-25 13:15 | XR_ITS ---
WS: [id number] KUB, AP view, 01/25/2021 Clinical Data: N20.9 - Urinary calculus, unspecified Comparison: KUB, 10/17/2020. Findings: No abnormal intraabdominal masses or calcifications are seen. There is no dilatated small bowel or ev idence of obstruction. There is a calcification inferior to the left SI joint unchanged. XR/XR KUB [id number] Impression: Negative KUB.
== END 2021-01-25 13:41 | disposition home or self-care (01) ==
LOC: RAD 13:42
PROVIDERS: PCP Nurse Practitioner Family; Visit Provider Urology
DX: N20.9 Urinary calculus, unspecified (principal)
CPT/HCPCS: 74018; 81003

== ENCOUNTER 2021-03-22 16:58 | Outpatient (CLI) | payer MEDICARE, MEDICAID, SELFPAY ==
--- NOTE | 2021-03-22 17:03 | XR_ITS ---
WS: [id number] XR knee RT 3V* [id number] REASON FOR EXAM: RT. KNEE PAIN FINDINGS: There is minimal narrowing of the medial, lateral, and patellofemoral knee joint space. There is a calcified loose body in the anterior midline joint space. There is a vague lucency seen in the lateral aspect of the medial femoral condyle. There is a calcification in the medial collateral ligament near the medial femoral condyle attachment . 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 Calcification in the medial collateral ligament most likely posttraumatic degen erative change.
--- NOTE | 2021-03-22 17:04 | XR_ITS ---
WS: [id number] XR ankle RT min 3V* [id number] REASON FOR EXAM: RT. ANKLE PAIN FINDINGS: The ankle mortise is intact and relatively well-preserved. No subchondral bone or other focal bony abnormality identified. There is soft tissue swelling around the ankle. XR/XR ankle RT min 3V* [id number] IMPRESSION: No significant bony or joint abnormality.
== END 2021-03-22 16:59 | disposition home or self-care (01) ==
PROVIDERS: PCP Nurse Practitioner Family; Visit Provider Nurse Practitioner Family
DX: M25.571 Pain in right ankle and joints of right foot (principal); M25.561 Pain in right knee; M93.261 Osteochondritis dissecans, right knee
CPT/HCPCS: 73562; 73610

== ENCOUNTER → 2021-05-03 14:38 | Outpatient (BNVA) | payer MEDICARE, MEDICAID, SELFPAY | PROVIDERS: PCP Nurse Practitioner Family; Visit Provider Urology | DX: N41.9 Inflammatory disease of prostate, unspecified (principal); R31.0 Gross hematuria; N20.9 Urinary calculus, unspecified | CPT/HCPCS: 81003 ==

== ENCOUNTER → 2021-05-30 11:05 | Outpatient (BNVA) | payer MEDICARE, MEDICAID, SELFPAY | PROVIDERS: PCP Nurse Practitioner Family; Visit Provider Internal Medicine Cardiovascular Disease | DX: E78.2 Mixed hyperlipidemia (principal) | CPT/HCPCS: 80061 ==

== ENCOUNTER 2021-06-29 14:25 | Outpatient (CLI) | payer MEDICARE, MEDICAID, SELFPAY ==
--- NOTE | 2021-06-29 14:32 | XR_ITS ---
WS: [id number] KUB, AP view, 06/29/2021 Clinical Data: STONES Comparison: KUB, 01/25/2021 Findings: No abnormal intraabdominal masses or calcifications are seen. There is no dilatated small bowel or ev idence of obstruction. There is a small calcification inferior to the left SI joint unchanged. XR/XR KUB [id number] Impression: Negative KUB.
== END 2021-06-29 14:26 | disposition home or self-care (01) ==
LOC: RAD 14:30
PROVIDERS: PCP Nurse Practitioner Family; Visit Provider Nurse Practitioner Family
DX: N20.9 Urinary calculus, unspecified (principal)
CPT/HCPCS: 74018; 81003; 87077; 87086; 87184

== ENCOUNTER 2021-06-30 09:11 | Outpatient (CLI) | payer MEDICARE, MEDICAID, SELFPAY ==
--- NOTE | 2021-06-30 09:13 | MR_ITS ---
WS: [id number] MRI RIGHT KNEE HISTORY: INTERNAL DERANGEMENT RT KNEE, recent fall. COMPARISON: 03/14/2021 and 09/14/2017 Quality of this examination is limited by body habitus. Anterior cruciate ligament: Thinning of the ACL. Similar to the prior examination from 2018. No new t ear. Posterior cruciate ligament: Intact. Medial collateral ligament: Intact. Posterior lateral corner structures: Intact. Medial menisci: Intact. Normal signal, size and shape. Lateral meniscus: Intact. Normal signal, size and shape. Extensor mechanism: Distal quadriceps tendon is normal. Mild patellar tendinopathy. Fluid and soft tissue: Small suprapatellar joint effusion. No Velasco's cyst. Osseous and articular structures: Patellofemoral compartment: Mild lateral subluxation of the patella, similar to the prior study. Mild loss of cartilage but no marrow edema. Medial compartment: Mild thinning and fissuring of the cartilage. No marrow edema or fracture. Lateral compartment: Mild thinning and fissuring of the cartilage. No marrow edema. Well-circumscribed body in the anterior joint space measuring 8.5 mm. This corresponds to the abnorma lity seen radiographically over the tibial spines. No donor site is evident. MR/MR knee RT wo con* [id number] IMPRESSION: 1. Very mild internal derangement involving all 3 compartments. 2. Mild lateral subluxation of the patella. 3. No marrow edema or fracture. 4. Loose body in the anterior mid knee joint measuring 8.5 mm. May be a calcif ic deposit or bone fragment. No donor site is evident. This was also present on the prior study from 09/16/2017.
== END 2021-06-30 09:12 | disposition home or self-care (01) ==
PROVIDERS: PCP Nurse Practitioner Family; Visit Provider Orthopaedic Surgery
DX: M23.91 Unspecified internal derangement of right knee (principal); S83.011A Lateral subluxation of right patella, initial encounter; X58.XXXA Exposure to other specified factors, initial encounter
CPT/HCPCS: 73721

== ENCOUNTER → 2021-07-24 13:39 | Outpatient (BNVA) | payer MEDICARE, MEDICAID, SELFPAY | PROVIDERS: PCP Nurse Practitioner Family; Visit Provider Nurse Practitioner Family | DX: N52.9 Male erectile dysfunction, unspecified (principal) | CPT/HCPCS: 81003 ==

== ENCOUNTER 2021-07-25 14:42 | Outpatient (CLI) | payer MEDICARE, MEDICAID, SELFPAY ==
--- NOTE | 2021-07-25 14:49 | XR_ITS ---
WS: [id number] LEFT KNEE: 3 VIEW(S) TECHNIQUE: AP, oblique(s) and lateral. HISTORY: KNEE PAIN, LEFT COMPARISON: 11/07/2018 No fracture or dislocation. Small osteophytes at the medial joint line. No fracture. No joint effusion. No soft tissue abnormality. XR/XR knee LT 3V* [id number] IMPRESSION: Mild medial compartment osteophytes.
== END 2021-07-25 14:43 | disposition home or self-care (01) ==
PROVIDERS: PCP Nurse Practitioner Family; Visit Provider Nurse Practitioner Family
DX: M25.562 Pain in left knee (principal); M25.762 Osteophyte, left knee
CPT/HCPCS: 73562

== ENCOUNTER → 2021-08-07 13:10 | Outpatient (BNVA) | payer MEDICARE, MEDICAID, SELFPAY | PROVIDERS: PCP Nurse Practitioner Family; Visit Provider Nurse Practitioner Family | DX: N41.9 Inflammatory disease of prostate, unspecified (principal) | CPT/HCPCS: 81003 ==

== ENCOUNTER → 2021-08-28 15:07 | Outpatient (BNVA) | payer MEDICARE, MEDICAID, SELFPAY | PROVIDERS: PCP Nurse Practitioner Family; Visit Provider Urology | DX: N41.9 Inflammatory disease of prostate, unspecified (principal) | CPT/HCPCS: 81003 ==

== ENCOUNTER 2021-09-13 10:47 | Outpatient (CLI) | payer MEDICARE, MEDICAID, SELFPAY ==
[2021-09-13 07:52] VITALS: BMI 47.4
[2021-09-13 11:15] VITALS: BP 154/91; PULSE 69; RESP 18; TEMP 36.7; O2SAT 97
[2021-09-13 11:45] VITALS: BP 154/99; BP 160/101; PULSE 67; PULSE 73; RESP 18; TEMP 36.5; TEMP 36.6; O2SAT 94; O2SAT 97
[2021-09-13 12:45] VITALS: BP 160/101; PULSE 67; RESP 17; TEMP 36.6; O2SAT 97
== END 2021-09-13 10:48 | disposition home or self-care (01) ==
LOC: OPS 10:50
PROVIDERS: PCP Nurse Practitioner Family; Visit Provider Nurse Practitioner Family
DX: U07.1 COVID-19 (principal)
CPT/HCPCS: 96365

== ENCOUNTER 2021-10-04 13:39 | Outpatient (CLI) | payer MEDICARE, MEDICAID, SELFPAY ==
--- NOTE | 2021-10-04 13:53 | XR_ITS ---
WS: [email or web address] XR KUB [id number] REASON FOR EXAM: UROLITHIASIS FINDINGS: No intrarenal, ureteral, or bladder calculi are identified. No other significant abnormality of the abdomen. XR/XR KUB [id number] IMPRESSION: No urinary tract calculi identified.
== END 2021-10-04 13:40 | disposition home or self-care (01) ==
LOC: RAD 13:47
PROVIDERS: PCP Nurse Practitioner Family; Visit Provider Urology
DX: N20.9 Urinary calculus, unspecified (principal); N52.9 Male erectile dysfunction, unspecified
CPT/HCPCS: 74018; 81003; 87086

== ENCOUNTER 2021-11-02 12:51 | Outpatient (CLI) | payer MEDICARE, MEDICAID, SELFPAY ==
--- NOTE | 2021-11-02 13:00 | XR_ITS ---
WS: [email or web address] KUB, AP view, 11/02/2021 Clinical Data: UROLITHIASIS Comparison: KUB, 10/04/2021. Findings: No abnormal intraabdominal masses or calcifications are seen. There is no dilatated small bowel or ev idence of obstruction. There is air in the stomach, small bowel and colon. XR/XR KUB [id number] Impression: Negative KUB.
== END 2021-11-02 12:52 | disposition home or self-care (01) ==
LOC: RAD 13:04
PROVIDERS: PCP Nurse Practitioner Family; Visit Provider Urology
DX: N20.9 Urinary calculus, unspecified (principal)
CPT/HCPCS: 74018; 81003

== ENCOUNTER → 2021-11-21 10:19 | Outpatient (BNVA) | payer MEDICARE, MEDICAID, SELFPAY | PROVIDERS: PCP Nurse Practitioner Family; Visit Provider Internal Medicine Cardiovascular Disease | DX: I25.10 Atherosclerotic heart disease of native coronary artery without angina pectoris (principal); E78.2 Mixed hyperlipidemia; N18.9 Chronic kidney disease, unspecified; E66.01 Morbid (severe) obesity due to excess calories; R07.89 Other chest pain; Z87.891 Personal history of nicotine dependence | CPT/HCPCS: 80061; 84439; 84443; 99214 ==

== ENCOUNTER 2021-11-25 03:40 | Emergency (ER) | payer MEDICARE, MEDICAID, SELFPAY ==
[2021-11-25] VITALS (9 sets, daily range): BP systolic 151–189; BP diastolic 71–98; PULSE 65–73; RESP 18–20; TEMP 36.8; O2SAT 84–98; BMI 46.8
[2021-11-25 04:31] LABS: Basophils # 0.1 10^3/uL (0.0-0.1); Basophils % 0.6 %; Eosinophils # 0.3 10^3/uL (0.0-0.8); Eosinophils % 2.6 %; Hemoglobin 15.2 g/dL (11.7-16.6); Lymphocytes # 2.3 10^3/uL (0.8-4.8); Lymphocytes % 19.9 %; Mean Corpuscular HGB Conc 32.3 g/dL (30.0-36.0); Mean Corpuscular Hemoglobin 28.4 pg (28.0-34.0); Mean Corpuscular Volume 87.7 fl (80-94); Mean Platelet Volume 11.2 fL (7.4-10.4); Monocytes # 1.1 10^3/uL (0.2-0.9); Monocytes % 9.5 %; Neutrophils # 7.89 10^3/uL (1.8-7.7); Neutrophils % 67.1 %; Nucleated Red Blood Cells % 0 %; Platelet Count 352 10^3/cmm (130-400); Red Blood Count 5.36 10^6/uL (4.1-5.3); Red Cell Distribution Width 13.4 % (12.1-15.1); White Blood Count 11.8 10^3/uL (4.0-10.0)
--- NOTE | 2021-11-25 04:32 | CTR_ITS ---
PROCEDURE INFORMATION: Exam: CT Abdomen And Pelvis Without Contrast Exam date and time: 11/25/2021 4:44 AM Age: 41 years old Clinical indication: Abdominal pain; Patient HX: C/O left flank pain TECHNIQUE: Imaging protocol: Computed tomography of the abdomen and pelvis without contrast. Radiation optimization: All CT scans at this facility use at least one of these dose optimization techniques: automated exposure control; mA and/or kV adjustment per patient size (includes targeted exams where dose is matched to clinical indication); or iterative reconstruction. COMPARISON: CT abdomen pelvis w con* [id number] 10/22/2020 3:26 AM RADIATION DOSE METRICS: Total DLP (mGy-cm): 6.35 FINDINGS: Liver: Normal. No mass. Gallbladder and bile ducts: Normal. No calcified stones. No ductal dilation. Pancreas: Normal. No ductal dilation. Spleen: Normal. No splenomegaly. Adrenal glands: Normal. No mass. Kidneys and ureters: There are 3 nonobstructing left renal calculi present, the largest measuring 2.3 mm within the upper pole. Punctate nonobstructing calculi are seen in the upper pole of the right kidney as well. Stomach and bowel: Diverticula are seen scattered on the colon, most numerous within the sigmoid colon. Appendix: The appendix is visualized and is normal in configuration. Intraperitoneal space: Unremarkable. No free air. No significant fluid collection. Vasculature: Unremarkable. No abdominal aortic aneurysm. Lymph nodes: Unremarkable. No enlarged lymph nodes. Urinary bladder: Unremarkable as visualized. Reproductive: Unremarkable as visualized. Bones/joints: Unremarkable. No acute fracture. Soft tissues: Unremarkable. CT/CT kidney stone [id number] IMPRESSION: 1. There are bilateral nonobstructing renal calculi, the largest seen in the upper pole of the left kidney measuring 2.3 mm. 2. Normal appendix 3. Diverticulosis, most numerous within the sigmoid colon.
[2021-11-25 04:36] LABS: Add Urine Microscopic? YES; Bilirubin Urine 1+ (Negative); Blood Urine 2+ (Negative); Glucose Urine UA Norm (Normal); Ketones Urine Negative (Negative); Leukocyte Esterase Urine 1+ (Negative); Nitrate Urine Positive (Negative); Protein Urine 1+ (Negative); Specific Gravity, Urine 1.005 (1.005-1.030); Urine Appearance Clear (CLEAR); Urobilinogen Urine 1 mg/dL (Negative); pH Urine 7 (5-7)
[2021-11-25] MEDS: ondansetron 2 mg/ML SDV 2 mL 4 MG IVP (04:48)
[2021-11-25] MEDS: HYDROmorphone 1 mg/mL INJ 1 mL IVP (04:50)
[2021-11-25 04:52] LABS: Add Urine Culture? No; Bacteria Urine TRACE /hpf; RBC Urine 0-4 /hpf (0-2); Squamous Epithelial Cell Urine 0-4 /hpf (0-5); Urine Color Orange (Yellow); WBC Urine 0-4 /hpf (0-5)
[2021-11-25 04:54] LABS: Alanine Aminotransferase 24 U/L (0-41); Albumin Level 3.8 g/dL (3.5-5.2); Alkaline Phosphatase 84 IU/L (40-130); Anion Gap 12.3 (5-19); Aspartate Amino Transferase 17 U/L (0-40); Blood Urea Nitrogen 15 mg/dL (6-20); Calcium 9.5 mg/dL (8.5-10.5); Carbon Dioxide 27 mmol/L (22-29); Chloride 101 mmol/L (98-107); Globulin 2.4 g/dL (1.3-4.6); Glucose 120 mg/dL (65-115); Osmolality Calculated 286 mOsm/kg (285-295); Potassium 3.3 mmol/L (3.5-5.1); Sodium 137 mmol/L (136-145); Total Bilirubin 0.5 mg/dL (0.15-1.2); Total Protein 6.2 g/dL (6.6-8.7)
[2021-11-25 04:56] LABS: Lipase 30 U/L (13-60)
[2021-11-25] MEDS: sodium chloride 0.9% 1,000 ML 999 ML IV (05:53)
--- NOTE | 2021-11-25 06:26 | ED_ITS ---
HPI - Abdominal Pain General: Chief Complaint: Abdominal Pain Stated Complaint: abd pain Time Seen by Provider: 11/25/21 04:41 Source: patient History of Present Illness: 41-year-old male who began to have pain around 1 AM. He states the pain was mainly on the left side of his abdomen and flank, and radiated toward the front. He was nauseated and vomited. No fever. Pain is significant on the patient's arrival, and he is hypertensive. MD elicited complaint: abdominal pain Pertinent past history: kidney stones Onset (ago): hour(s) Pain Consistency: constant Location: LLQ and L flank Quality: stabbing and aching Radiation: suprapubic Migration to: no migration Exacerbating factors: nothing Relieving factors: nothing Associated Symptoms: Reports nausea and syncope; Denies change in bowel habits, change in stool character, chills, coffee ground emesis, fever(s), hematochezia, hematemesis and fecal incontinence Review of Systems Const: Denies: fever(s) or chills ENMT: Denies: throat pain Card: Reports: syncope; Denies: chest pain Resp: Denies: dyspnea, productive cough or non-productive cough GI: Reports: nausea; Denies: hematemesis, coffee ground emesis, fecal incontinence, change in bowel habits, change in stool character or hematochezia : Reports: flank pain Neuro: Reports: headache(s) Psych: Reports: depression; Denies: anxiety [facility] ED PFSH: Medical History Acute cystitis ASHD (arteriosclerotic heart disease) Atypical chest pain Bleeding per rectum Chronic back pain Diverticulosis Dyslipidemia Family history of colon cancer GERD (gastroesophageal reflux disease) Gross hematuria Hematemesis Hyperlipidemia Hypertension Morbid obesity Prostatitis Urolithiasis Surgical History H/O eye surgery H/O knee surgery H/O lithotripsy Family History Mother , 52 CAD (coronary artery disease) Cancer lung, colon Father , 60 Cancer CAD (coronary artery disease) Hypertension Grandmother CAD (coronary artery disease) Dementia Diabetes Grandfather CAD (coronary artery disease) Cancer Dementia Family/Other CAD (coronary artery disease) Cancer Chronic kidney disease (CKD) Lung disease Stroke Denies family history of Clotting disorder Suicide Anesthesia complication Bleeding disorder Social History Smoking and tobacco status: former smoker Alcohol intake: never Marital status: Life Partner Current occupational status: disabled History of recent travel: No Physical Exam Const: COMMON NORMALS: patient oriented x3 GENERAL APPEARANCE: cooperative HENMT: COMMON NORMALS: normocephalic, atraumatic and external ears normal HEAD & SCALP: normocephalic and atraumatic EXTERNAL EAR: Yes external ears normal Eye: COMMON NORMALS: Equal, round and reactive pupils present and EOMs intact bilaterally PUPIL: Yes Equal, round and reactive pupils present Chest: COMMONS NORMALS: normal inspection of the chest Resp: COMMON NORMALS: normal respiratory effort, No use of accessory muscles and clear to auscultation bilaterally AUSCULTATION: clear to auscultation bilaterally Cardio: COMMON NORMALS: regular rate and regular rhythm RATE: regular rate RHYTHM: regular rhythm GI: COMMON NORMALS: Normal to inspection, nondistended, normoactive bowel sounds present PALPATION: Yes Tenderness to palpation present (GI) (Left side, left flank) : BLADDER/KIDNEY EXAM: Yes CVA tenderness Back/Pelvis: GENERAL BACK: Yes CVA tenderness Neuro: JAYME COMA SCALE: document GCS findings [place] coma scale eye opening: Spontaneous Jayme coma scale verbal response: Orientated Jayme coma scale motor response: Obey commands [place] coma scale total score: 15 COMMON NORMALS: patient oriented x3 Course Vital Signs: Vital signs: Vital Signs Temperature 98.2 F 11/25/21 04:01 Pulse Rate 68 11/25/21 06:59 Respiratory Rate 18 11/25/21 06:59 Blood Pressure 189/87 11/25/21 06:59 Pulse Oximetry 96 11/25/21 06:59 MDM - Abdominal Pain Medical Decision Making Potassium is low which is repleted. White blood cell count is 11.8. BMP is normal otherwise. Hemoglobin is 15. Liver enzymes are normal. Urinalysis shows 2+ blood with only 0-4 whites and 0-4 reds. There is leukocyte esterase present concerning for infection. This could be a prostatitis as well. Also in the differential was a recently passed stone. CT shows no hydronephrosis, no stone. No other cause found on CT. We will treat as urinary tract infection. Lab Data : 11/25/21 04:18 11/25/21 04:18 Labs/Radiology: Radiology Impressions Abdomen/Pelvis CT 11/25/21 04:32 IMPRESSION: 1. There are bilateral nonobstructing renal calculi, the largest seen in the upper pole of the left kidney measuring 2.3 mm. 2. Normal appendix 3. Diverticulosis, most numerous within the sigmoid colon. Laboratory Results WBC 11.8 10^3/uL (4.0-10.0) H 11/25/21 04:18 RBC 5.36 10^6/uL (4.1-5.3) H 11/25/21 04:18 Hgb 15.2 g/dL (11.7-16.6) 11/25/21 04:18 Hct 47.0 % (42.0-52.0) 11/25/21 04:18 MCV 87.7 fl (80-94) 11/25/21 04:18 MCH 28.4 pg (28.0-34.0) 11/25/21 04:18 MCHC 32.3 g/dL (30.0-36.0) 11/25/21 04:18 RDW 13.4 % (12.1-15.1) 11/25/21 04:18 Plt Count 352 10^3/cmm (130-400) 11/25/21 04:18 MPV 11.2 fL (7.4-10.4) H 11/25/21 04:18 Neut % (Auto) 67.1 % 11/25/21 04:18 Lymph % (Auto) 19.9 % 11/25/21 04:18 White % (Auto) 9.5 % 11/25/21 04:18 Eos % (Auto) 2.6 % 11/25/21 04:18 Baso % (Auto) 0.6 % 11/25/21 04:18 Neut # (Auto) 7.89 10^3/uL (1.8-7.7) H 11/25/21 04:18 Lymph # (Auto) 2.3 10^3/uL (0.8-4.8) 11/25/21 04:18 White # (Auto) 1.1 10^3/uL (0.2-0.9) H 11/25/21 04:18 Eos # (Auto) 0.3 10^3/uL (0.0-0.8) 11/25/21 04:18 Baso # (Auto) 0.1 10^3/uL (0.0-0.1) 11/25/21 04:18 Nucleated RBC % (auto) 0 % 11/25/21 04:18 Nucleated RBCs # 0.0 /100WBC 11/25/21 04:18 Sodium 137 mmol/L (136-145) 11/25/21 04:18 Potassium 3.3 mmol/L (3.5-5.1) L 11/25/21 04:18 Chloride 101 mmol/L (98-107) 11/25/21 04:18 Carbon Dioxide 27 mmol/L (22-29) 11/25/21 04:18 Anion Gap 12.3 (5-19) 11/25/21 04:18 BUN 15 mg/dL (6-20) 11/25/21 04:18 Creatinine 0.9 mg/dL (0.7-1.2) 11/25/21 04:18 GFR Calculation 93.0 mL/min (90-130) 11/25/21 04:18 Glucose 120 mg/dL (65-115) H 11/25/21 04:18 Calculated Osmolality 286 mOsm/kg (285-295) 11/25/21 04:18 Calcium 9.5 mg/dL (8.5-10.5) 11/25/21 04:18 Total Bilirubin 0.5 mg/dL (0.15-1.2) 11/25/21 04:18 AST 17 U/L (0-40) 11/25/21 04:18 ALT 24 U/L (0-41) 11/25/21 04:18 Alkaline Phosphatase 84 IU/L (40-130) 11/25/21 04:18 Total Protein 6.2 g/dL (6.6-8.7) L 11/25/21 04:18 Albumin 3.8 g/dL (3.5-5.2) 11/25/21 04:18 Globulin 2.4 g/dL (1.3-4.6) 11/25/21 04:18 Lipase 30 U/L (13-60) 11/25/21 04:18 Urine Color [place] (Yellow) 11/25/21 04:18 Urine Appearance Clear (CLEAR) 11/25/21 04:18 Urine pH 7 (5-7) 11/25/21 04:18 Ur Specific [place] 1.005 (1.005-1.030) 11/25/21 04:18 Urine Protein 1+ (Negative) H 11/25/21 04:18 Urine Glucose (UA) Norm (Normal) 11/25/21 04:18 Urine Ketones Negative (Negative) 11/25/21 04:18 Urine Blood 2+ (Negative) H 11/25/21 04:18 Urine Nitrate Positive (Negative) H 11/25/21 04:18 Urine Bilirubin 1+ (Negative) H 11/25/21 04:18 Urine Urobilinogen 1 mg/dL (Negative) H 11/25/21 04:18 Ur Leukocyte Esterase 1+ (Negative) H 11/25/21 04:18 Urine RBC 0-4 /hpf (0-2) H 11/25/21 04:18 Urine WBC 0-4 /hpf (0-5) H 11/25/21 04:18 Ur Squamous Epith Cells 0-4 /hpf (0-5) H 11/25/21 04:18 Amorphous Sediment Not Reportable 11/25/21 04:18 Urine Bacteria Trace /hpf (NONE) 11/25/21 04:18 Discharge Plan Discharge Patient Disposition: Home Clinical Impression: Renal colic on left side, Urinary tract infection Condition: Stable Prescriptions: New levofloxacin 750 mg tablet 750 mg PO DAILY 10 Days Qty: 10 0RF ondansetron 4 mg film 4 mg PO DAILY PRN (Reason: nausea and vomiting) Qty: 10 0RF No Action mecobalamin (vitamin B12) 1,000 mcg tablet,chewable 1,000 mcg PO DAILY 0RF Dexilant 60 mg capsule,biphase delayed releas 60 mg PO DAILY 0RF doxycycline hyclate 100 mg tablet 100 mg PO BID Qty: 60 6RF tadalafil 20 mg tablet 20 mg PO DAILY PRN (Reason: sexual activity) Qty: 10 5RF Rx Instructions: TAKE 30min before sexual activity; do not use more than 1 dose per 24hrs; NO NITROGLYCERIN!!!!! chlorthalidone 25 mg tablet 50 mg PO DAILY 0RF carvedilol 25 mg tablet 25 mg PO BID Qty: 180 3RF spironolactone 25 mg tablet See Rx Instructions .ROUTE .COMPLEX Qty: 90 3RF Dose Instruction: TAKE 1 TABLET BY MOUTH EVERY DAY Rx Instructions: TAKE 1 TABLET BY MOUTH EVERY DAY simvastatin 20 mg tablet See Rx Instructions .ROUTE .COMPLEX Qty: 90 3RF Dose Instruction: TAKE 1 TABLET BY MOUTH EVERY DAY Rx Instructions: TAKE 1 TABLET BY MOUTH EVERY DAY hydralazine 100 mg tablet 100 mg PO TID Qty: 90 5RF amlodipine 5 mg tablet 10 mg PO DAILY Qty: 60 5RF Rx Instructions: TAKE 1 TABLET BY MOUTH TWICE A DAY phenazopyridine 200 mg tablet See Rx Instructions .ROUTE .COMPLEX Qty: 20 0RF Dose Instruction: TAKE 1 TABLET BY MOUTH THREE TIMES A DAY NEEDED FOR PAIN Rx Instructions: TAKE 1 TABLET BY MOUTH THREE TIMES A DAY NEEDED FOR PAIN albuterol sulfate 90 mcg/actuation HFA aerosol inhaler 90 puff INHALATION PRN PRN (Reason: Allergy Symptoms) 0RF Discharge Orders: Discharge ED (Routine); Ordered 11/25/21 Ordered By: Dhruv Fuentes Referrals: Manuelito Carpio NP [Primary Care Provider] - 4-7 days Patient Instructions: Urinary Tract Infection in Men (ED), Abdominal Pain (ED), Opioid Safety Activity Restrictions/Additional Instructions: Return for fever greater than 100 despite 2-3 doses of antibiotics, worsening pain despite treatment, vomiting liquids or medications, any other concerning symptoms. Coding Level of Care Code ED Supervisor [employer] Service for Alejandro Vega
[2021-11-25] MEDS: levoFLOXacin 500 mg Tablet PO (06:55)
== END 2021-11-25 07:00 | disposition home or self-care (01) ==
PROVIDERS: Emergency Provider Emergency Medicine; PCP Nurse Practitioner Family
DX: N23 Unspecified renal colic (principal); N39.0 Urinary tract infection, site not specified; E87.6 Hypokalemia; Z87.891 Personal history of nicotine dependence; E78.5 Hyperlipidemia, unspecified; I10 Essential (primary) hypertension; Z87.442 Personal history of urinary calculi
CPT/HCPCS: 74176; 80053; 81001; 83690; 85025; 96361; 96374; 96375; 99284; J1170; J2405; J7030

== ENCOUNTER 2021-12-04 07:48 | Outpatient (CLI) | payer MEDICARE, MEDICAID, SELFPAY ==
--- NOTE | 2021-12-04 08:00 | XRR_ITS ---
PROCEDURE INFORMATION: Exam: XR Abdomen Exam date and time: 12/04/2021 8:00 AM Age: 41 years old Clinical indication: Condition or disease; Kidney or ureter condition; Calculus (stone) in kidney; Additional info: Kidney stone, kub @ [facility] 12/04/21 @ 0800 appt to follow TECHNIQUE: Imaging protocol: XR of the abdomen. Views: Frontal supine view of the abdomen. 1 View. COMPARISON: CT kidney stone [id number] 11/25/2021 4:44 AM FINDINGS: Gastrointestinal tract: Normal. No bowel dilation. Organs: Left kidney upper pole 3.2 mm calculus, remainder of the renal calculi seen on comparison CT abdomen and pelvis are not seen on this exam. Bones/joints: Unremarkable. XR/XR KUB [id number] IMPRESSION: Left kidney upper pole 3.2 mm calculus, remainder of the renal calculi seen on comparison CT abdomen and pelvis are not seen on this exam.
== END 2021-12-04 07:49 | disposition home or self-care (01) ==
PROVIDERS: PCP Nurse Practitioner Family; Visit Provider Nurse Practitioner Family
DX: N23 Unspecified renal colic (principal); N20.0 Calculus of kidney
CPT/HCPCS: 74018; 81003; 87086

== ENCOUNTER 2021-12-13 15:30 | Outpatient (CLI) | payer MEDICARE, MEDICAID, SELFPAY ==
--- NOTE | 2021-12-13 15:45 | US_ITS ---
WS: [id number] SCROTAL ULTRASOUND EXAMINATION CLINICAL INFORMATION: PAIN IN BOTH TESTICLES COMPARISON: None. FINDINGS: TESTES Normal in size and echotexture, without focal lesion. Color Doppler: Normal color Doppler flow pattern. Right testes size: 3.7 cm x 2.6 cm x 2.2 cm. Left testes size: 3.9 cm x 2.8 cm x 2.3 cm. EPIDIDYMIDES 3 mm RIGHT epididymal cyst. Normal in size and echotexture, without focal lesion. Color Doppler: Normal color Doppler flow pattern. Right epididymis size: 3.6 cm x 0.9 cm x 1.4 cm. Left epididymitis size: 3.1 cm x 1.2 cm x 1.1 cm. HYDROCELE None. VARICOCELE None. OTHER FINDINGS None. US/US scrotum [id number] IMPRESSION: 1. Testicles are normal in size and echotexture. Normal vascularity. 2. 3 mm RIGHT epididymal cyst. 3. No other significant findings.
== END 2021-12-13 15:31 | disposition home or self-care (01) ==
LOC: RAD 15:38
PROVIDERS: PCP Nurse Practitioner Family; Visit Provider Nurse Practitioner Family
DX: N50.811 Right testicular pain (principal); N50.812 Left testicular pain; N50.3 Cyst of epididymis
CPT/HCPCS: 76870; 81003

== ENCOUNTER → 2021-12-20 07:54 | Outpatient (BNVA) | payer MEDICARE, MEDICAID, SELFPAY | PROVIDERS: PCP Nurse Practitioner Family; Referring Provider Nurse Practitioner Family; Visit Provider Internal Medicine | DX: E05.90 Thyrotoxicosis, unspecified without thyrotoxic crisis or storm (principal); E04.9 Nontoxic goiter, unspecified; Z87.891 Personal history of nicotine dependence | CPT/HCPCS: 36415; 83516; 84439; 84443; 84480; 86376; 86800; 99204 ==

== ENCOUNTER → 2022-02-19 12:49 | Outpatient (BNVA) | payer MEDICARE, MEDICAID, SELFPAY | PROVIDERS: PCP Nurse Practitioner Family; Visit Provider Internal Medicine | DX: E05.90 Thyrotoxicosis, unspecified without thyrotoxic crisis or storm (principal); E04.9 Nontoxic goiter, unspecified; N20.0 Calculus of kidney; Z87.891 Personal history of nicotine dependence | CPT/HCPCS: 36415; 82310; 83970; 84439; 84443; 84480; 99214 ==

== ENCOUNTER → 2022-03-05 15:08 | Outpatient (BNVA) | payer MEDICARE, MEDICAID, SELFPAY | PROVIDERS: PCP Nurse Practitioner Family; Visit Provider Urology | DX: N20.9 Urinary calculus, unspecified (principal); N50.811 Right testicular pain; N50.812 Left testicular pain | CPT/HCPCS: 81003; 99213 ==

== ENCOUNTER 2022-03-08 09:06 | Outpatient (CLI) | payer MEDICARE, MEDICAID, SELFPAY ==
--- NOTE | 2022-03-08 09:15 | US_ITS ---
WS: [id number] THYROID ULTRASOUND HISTORY: goiter COMPARISON: None available. Right lobe: 3.9 cm x 3.1 cm x 6.7 cm (w x ap x l). Volume: 42.4 cm3. Markedly enlarged heterogeneous nodular thyroid. There are numerous ill-defined nodules throughout th e gland which are isoechoic to the remaining gland. There are a few cystic areas with no echogenic fo ci. There is no one nodule that stands out as being more concerning than another. Left lobe: 5.0 cm x 5.1 cm x 8.5 cm (w x ap x l). Volume: 111.4 cm3. Markedly enlarged heterogeneous nodular thyroid. Multiple nodules which are isoechoic to the remainin g gland. There are a few scattered cystic areas bilaterally. No echogenic foci. There is no one nodul e that stands out as being more concerning than another. Isthmus: 1.0 cm. US/US thyroid [id number] IMPRESSION: 1. Markedly enlarged heterogeneous nodular thyroid gland. Most likely goiter f ormation. 2. These nodules are all very similar in appearance and nearly isoechoic to th e normal thyroid. No one nodule is more concerning than another.
== END 2022-03-08 09:07 | disposition home or self-care (01) ==
PROVIDERS: PCP Nurse Practitioner Family; Visit Provider Internal Medicine
DX: E04.9 Nontoxic goiter, unspecified (principal); E05.90 Thyrotoxicosis, unspecified without thyrotoxic crisis or storm
CPT/HCPCS: 76536

== ENCOUNTER 2022-03-13 15:51 | Outpatient (CLI) | payer MEDICARE, MEDICAID, SELFPAY ==
--- NOTE | 2022-03-13 | XRR_ITS ---
PROCEDURE INFORMATION: Exam: XR Left Tibia and Fibula Exam date and time: 03/13/2022 5:04 PM Age: 41 years old Clinical indication: Pain and injury or trauma; Other: Fall going up stairs; Blunt trauma; Lower leg; Left; Additional info: Left leg pain TECHNIQUE: Imaging protocol: Radiologic exam of the Left tibia and fibula. Views: 2 views. AP and Lateral COMPARISON: CR XR knee LT 3V* [id number] 07/25/2021 2:56 PM FINDINGS: Bones/joints: There is normal alignment without fractures or dislocations. The limitedly assessed visualized knee and ankle regions appear grossly unremarkable. Soft tissues: There are no radiopaque foreign bodies. Moderate anterior pretibial soft tissue swelling is seen. Notes: If there is further concern, recommend follow-up radiographs or bone scan for complete assessment. XR/XR tibia fibula LT 2V [id number] IMPRESSION: No fractures or dislocations of the left tibia and fibula. Moderate anterior pretibial soft tissue swelling.
== END 2022-03-13 15:52 | disposition home or self-care (01) ==
LOC: RAD 15:59
PROVIDERS: PCP Nurse Practitioner Family; Visit Provider Nurse Practitioner Family
DX: M79.605 Pain in left leg (principal)
CPT/HCPCS: 73590

== ENCOUNTER → 2022-05-23 11:10 | Outpatient (BNVA) | payer MEDICARE, MEDICAID, SELFPAY | PROVIDERS: PCP Nurse Practitioner Family; Visit Provider Internal Medicine Cardiovascular Disease | DX: R07.89 Other chest pain (principal); R06.02 Shortness of breath; E78.2 Mixed hyperlipidemia; E05.90 Thyrotoxicosis, unspecified without thyrotoxic crisis or storm; E66.01 Morbid (severe) obesity due to excess calories; I10 Essential (primary) hypertension; Z87.891 Personal history of nicotine dependence; Z68.41 Body mass index [BMI] 40.0-44.9, adult | CPT/HCPCS: 80061; 93005; 99214 ==

== ENCOUNTER 2022-08-15 14:49 | Outpatient (CLI) | payer MEDICARE, MEDICAID, SELFPAY ==
--- NOTE | 2022-08-15 15:00 | MR_ITS ---
WS: [id number] MRI LUMBAR SPINE NONCONTRAST TECHNIQUE: Sagittal T1, T2 and STIR imaging. Axial T1 and T2 imaging. CLINICAL INFORMATION: CHRONIC BACK PAIN/LEG PARESTHESIA COMPARISON: MRI lumbar 10,014. Myelogram 2016. FINDINGS: Mild lumbar curve. No acute compression. A few Schmorl's nodes in the lower thoracic and lumbar spine . No high-grade central canal stenosis. L1-L2: Mild annular bulging. Spinal canal and foramen are patent. Mild facet arthropathy. L2-L3: Mild annular bulging with slight impingement on the subarticular recess bilaterally RIGHT grea ter than LEFT. Mild central canal stenosis. Foramen are patent. L3-L4: Mild annular bulging with mild central canal stenosis. Slight impingement traversing L4 nerve roots bilaterally RIGHT greater than LEFT. Moderate facet arthropathy. Mild LEFT foraminal narrowing. L4-L5: Mild annular bulging. Slight effacement of ventral thecal sac. Mild central canal stenosis. Ad vanced facet arthropathy ligamentum flavum hypertrophy. Foramen are patent. L5-S1: Shallow central disc protrusion with slight contact of the traversing S1 nerve roots bilateral ly. Moderate facet arthropathy. Spinal canal and foramen are patent. Partially visualized focal area area of sclerosis in the RIGHT S1 vertebral body measuring 18 mm. Thi s is unchanged since the prior myelogram 2016. Markedly enlarged heterogeneous multinodular thyroid is partially visualized. This is evaluated on recent ultrasound March 08, 2022. This measures approximately 5.5 AP by 10.4 cm partially visualized on this study. This extends into the upper mediastinum. This can be further evaluated with chest CT for better anatomic detail if indicated. MR/MR lumbar spine wo con* [id number] IMPRESSION: 1. Mild lumbar curve. No acute compression. No high-grade central canal stenos is. 2. Mild central canal stenosis L2-L3, L3-L4, L4-L5 with narrowing of the subar ticular recess at these levels. Moderate facet arthropathy with ligamentum flav um hypertrophy contributes to stenosis. This is progressed compared to the prio r examinations. 3. Tiny shallow central protrusion L5-S1 slightly contacts the traversing S1 n erve roots bilaterally. Moderate facet arthropathy. 4. Mild LEFT L3-L4 foraminal narrowing. 5. Markedly enlarged heterogeneous multinodular thyroid is partially visualize d. This is evaluated on the recent ultrasound March 08, 2022. This measures appr oximately 5.5 AP by 10.4 cm partially visualized on this study. This extends in to the upper mediastinum. This can be further evaluated with chest CT for mila r anatomic detail if indicated.
== END 2022-08-15 14:50 | disposition home or self-care (01) ==
LOC: RAD 14:52
PROVIDERS: PCP Nurse Practitioner Family; Visit Provider Family Medicine
DX: R20.2 Paresthesia of skin (principal); M54.89 Other dorsalgia
CPT/HCPCS: 72148

== ENCOUNTER 2022-09-03 12:25 | Outpatient (CLI) | payer MEDICARE, MEDICAID, SELFPAY ==
--- NOTE | 2022-09-03 12:42 | XR_ITS ---
WS: [id number] XR KUB [id number] REASON FOR EXAM: stones FINDINGS: Upper pole calculus left kidney unchanged in size and location compared to 12/04/2021. No other urinary tract calculi are identified. XR/XR KUB [id number] IMPRESSION: Stable upper pole calculus of the left kidney as above.
== END 2022-09-03 12:26 | disposition home or self-care (01) ==
LOC: RAD 12:29
PROVIDERS: PCP Nurse Practitioner Family; Visit Provider Orthopaedic Surgery
DX: N20.0 Calculus of kidney (principal); N41.9 Inflammatory disease of prostate, unspecified; E66.01 Morbid (severe) obesity due to excess calories
CPT/HCPCS: 74018; 81003; 99213

== ENCOUNTER 2022-09-11 06:53 | Outpatient (CLI) | payer MEDICARE, MEDICAID, SELFPAY ==
[2022-09-11 07:02] VITALS: BMI 42.7
--- NOTE | 2022-09-11 07:07 | ECG_ITS ---
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 Interpretive Statements NAME OF STUDY: LEXISCAN SESTAMIBI STRESS TEST INDICATION: [Chest Pain] Procedure: At the baseline, the blood pressure was 141/77 mmHg with a heart rate of 68 bpm. The electrocardiogram showed normal sinus rhythm, normal axis with normal ST and T's. The Lexiscan was infused over a period of 20 seconds. A total of 0.4 mg of Lexiscan was infused. The stress phase was continued for a total of 5 minutes. Heart rate was at the end of stress phase was 88 bpm and a blood pressure of 141/74 mmHg. The EKG at the peak infusion revealed normal sinus rhythm with no significant ST-T wave changes. Sestamibi was injected 20 seconds after the Lexiscan infusion. Blood pressure at the end of recovery phase was 136/73 mmHg with a heart rate of 86 bpm. Conclusion: 1. Normal EKG response to Lexiscan infusion 2. No Lexiscan induced chest pain or cardiac arrhythmia. 3. Normal blood pressure and heart rate response. 4. Sestamibi/sestamibi perfusion scan pending; see separate report. Electronically Signed On 09-23-2022 19:52:48 [employer] by Gerber Hale M.D. [id number]
--- NOTE | 2022-09-11 07:07 | NMCV_ITS ---
NM travis perf SPECT r/s* [id number] Gregorio Romero Age: 42 Gender: M : 1980 Exam Date: 09/11/2022 07:07 Ordering Phys: Quan Rivas MD ([email or web address]) Technologist: MICHAEL Singh Exam Location: [facility] Indications: CORONARY ANGIOPLASTY STATUS STRESS TEST Please see separate stress test report in [facility] for full findings IMAGE PROTOCOL Rest/Stress 1 Lexiscan Day Radiopharmaceutical Dose (mCi) Administration Site Administered by Rest: Tc-99m 10.9 IV MICHAEL Goldstein Sestamibi Stress:Tc-99m 32.6 IV MICHAEL Singh Sestamichata Rest: 11-Sep-2022 60 Discovery 630 Stress: 11-Sep-2022 30 Discovery 630 0.4mg Lexiscan. Images obtained in supine and prone position. SPECT RESULTS Technical Quality: Excellent Raw Data Analysis: Normal Image Corrections: No attenuation or motion correction applied Summed Stress Score: 0 Summed Rest Score: 0 Summed Difference Score: 0 PERFUSION FINDINGS There is a small in size, reversible perfusion defect noted in the apical lateral wall. This is consistent with small area of ischemia in the left circumflex artery territory. FUNCTIONAL RESULTS (calculated via Gated SPECT) Stress Image LV EF (%): 68 Stress EDV (mL):199 TID: 1.07 Stress ESV (mL):64 FUNCTIONAL FINDINGS: There is normal left ventricular systolic function. IMPRESSIONS 1. Small area of ischemia noted in the left circumflex artery territory. 2. LV systolic function is normal Gerber Hale MD (Electronically Signed) Final Date: 11 September 2022 11:59 S
[2022-09-11] MEDS: regadenoson 0.4 Mg/5 ml Syringe IVP (08:45)
[2022-09-11 09:11] VITALS: BP 141/82; PULSE 78
== END 2022-09-11 06:54 | disposition home or self-care (01) ==
LOC: CDL 06:56
PROVIDERS: PCP Nurse Practitioner Family; Visit Provider Internal Medicine Cardiovascular Disease
DX: R07.9 Chest pain, unspecified (principal); Z98.61 Coronary angioplasty status; I25.9 Chronic ischemic heart disease, unspecified
CPT/HCPCS: 36415; 78452; 93017; 96374; A9500; J2785

== ENCOUNTER → 2022-09-18 14:46 | Outpatient (BNVA) | payer MEDICARE, MEDICAID, SELFPAY | PROVIDERS: PCP Nurse Practitioner Family; Referring Provider Family Medicine; Visit Provider Orthopaedic Surgery | DX: M47.816 Spondylosis without myelopathy or radiculopathy, lumbar region (principal) | CPT/HCPCS: 72110; 99204 ==

== ENCOUNTER → 2022-10-03 09:52 | Outpatient (BNVA) | payer MEDICARE, MEDICAID, SELFPAY | PROVIDERS: PCP Nurse Practitioner Family; Referring Provider Orthopaedic Surgery; Visit Provider Anesthesiology Pain Medicine | DX: G89.29 Other chronic pain (principal); M47.816 Spondylosis without myelopathy or radiculopathy, lumbar region; M51.16 Intervertebral disc disorders with radiculopathy, lumbar region; M17.0 Bilateral primary osteoarthritis of knee | CPT/HCPCS: 99205 ==

== ENCOUNTER 2022-10-09 06:00 | Outpatient (RCR) | payer MEDICARE, MEDICAID, SELFPAY | END 2022-10-23 23:59 | disposition home or self-care (01) | LOC: SPT 06:00 | PROVIDERS: PCP Nurse Practitioner Family; Visit Provider Orthopaedic Surgery | DX: M54.50 Low back pain, unspecified (principal) | CPT/HCPCS: 97161 ==

== ENCOUNTER 2022-10-24 06:00 | Outpatient (RCR) | payer MEDICARE, MEDICAID, SELFPAY | END 2022-11-23 23:59 | disposition home or self-care (01) | LOC: SPT 06:00 | PROVIDERS: PCP Nurse Practitioner Family; Visit Provider Orthopaedic Surgery | DX: M54.50 Low back pain, unspecified (principal) | CPT/HCPCS: 97110 ==

== ENCOUNTER → 2022-11-22 09:46 | Outpatient (BNVA) | payer MEDICARE, MEDICAID, SELFPAY | PROVIDERS: PCP Nurse Practitioner Family; Visit Provider Internal Medicine Cardiovascular Disease | DX: I25.10 Atherosclerotic heart disease of native coronary artery without angina pectoris (principal); E78.5 Hyperlipidemia, unspecified; I10 Essential (primary) hypertension; G47.33 Obstructive sleep apnea (adult) (pediatric); R07.89 Other chest pain; E78.2 Mixed hyperlipidemia; E66.01 Morbid (severe) obesity due to excess calories; Z68.42 Body mass index [BMI] 45.0-49.9, adult; Z87.891 Personal history of nicotine dependence | CPT/HCPCS: 99214 ==

== ENCOUNTER 2022-11-24 06:00 | Outpatient (RCR) | payer MEDICARE, MEDICAID, SELFPAY | END 2022-12-23 23:59 | disposition home or self-care (01) | LOC: SPT 06:00 | PROVIDERS: PCP Nurse Practitioner Family; Visit Provider Orthopaedic Surgery | DX: M54.50 Low back pain, unspecified (principal) | CPT/HCPCS: 97110 ==

== ENCOUNTER 2022-11-26 10:56 | Outpatient (CLI) | payer MEDICARE, MEDICAID, SELFPAY ==
[2022-11-26 14:31] LABS: Alanine Aminotransferase 22 U/L (0-41); Alkaline Phosphatase 90 U/L (40-130); Aspartate Amino Transferase 24 U/L (0-40); Chol HDL Ratio 3.08 mg/dL (1.0-5.00); Cholesterol 117 mg/dL (0-200); HDL Cholesterol 38 mg/dL (60-100); LDL Cholesterol Calculated 63 mg/dL (50-129); LDL HDL Ratio 1.66 RATIO (0.00-3.22); Triglycerides 78 mg/dL (0-150)
[2022-11-26 15:00] LABS: Globulin 3.2 g/dL (1.3-4.6); Total Bilirubin 0.9 mg/dL (0.15-1.2); Total Protein 7.2 g/dL (6.6-8.7)
== END 2022-11-26 10:57 | disposition home or self-care (01) ==
LOC: LAB 10:58
PROVIDERS: PCP Nurse Practitioner Family; Visit Provider Internal Medicine Cardiovascular Disease
DX: E78.5 Hyperlipidemia, unspecified (principal)
CPT/HCPCS: 36415; 80061; 80076

== ENCOUNTER → 2022-12-18 16:21 | Outpatient (BNVA) | payer MEDICARE, MEDICAID, SELFPAY | PROVIDERS: PCP Nurse Practitioner Family; Visit Provider Internal Medicine Cardiovascular Disease | DX: R06.02 Shortness of breath (principal); R07.9 Chest pain, unspecified; R55 Syncope and collapse; R00.2 Palpitations; G47.11 Idiopathic hypersomnia with long sleep time; I25.10 Atherosclerotic heart disease of native coronary artery without angina pectoris; E78.2 Mixed hyperlipidemia; I10 Essential (primary) hypertension; E78.5 Hyperlipidemia, unspecified | CPT/HCPCS: 80048; 83880; 84484; 85378; 99214 ==

== ENCOUNTER 2022-12-24 06:00 | Outpatient (RCR) | payer MEDICARE, MEDICAID, SELFPAY | END 2023-01-23 23:59 | disposition home or self-care (01) | LOC: SPT 06:00 | PROVIDERS: PCP Nurse Practitioner Family; Visit Provider Orthopaedic Surgery | DX: M54.50 Low back pain, unspecified | CPT/HCPCS: 97110; 99214 ==

== ENCOUNTER → 2022-12-24 15:23 | Outpatient (BNVA) | payer MEDICARE, MEDICAID, SELFPAY | PROVIDERS: PCP Nurse Practitioner Family; Visit Provider Internal Medicine | DX: E78.2 Mixed hyperlipidemia (principal); E05.90 Thyrotoxicosis, unspecified without thyrotoxic crisis or storm; E04.9 Nontoxic goiter, unspecified; N20.0 Calculus of kidney; R05.9 Cough, unspecified | CPT/HCPCS: 36415; 84439; 84443; 84480 ==

== ENCOUNTER 2023-01-24 11:37 | Outpatient (RCR) | payer MEDICARE, MEDICAID, SELFPAY | END 2023-02-22 23:59 | disposition home or self-care (01) | LOC: SPT 11:37 | PROVIDERS: PCP Nurse Practitioner Family; Visit Provider Orthopaedic Surgery | DX: M54.50 Low back pain, unspecified | CPT/HCPCS: 97110 ==

== ENCOUNTER → 2023-02-14 14:39 | Outpatient (BNVA) | payer MEDICARE, MEDICAID, SELFPAY | PROVIDERS: PCP Nurse Practitioner Family; Visit Provider Orthopaedic Surgery | DX: M51.16 Intervertebral disc disorders with radiculopathy, lumbar region (principal) | CPT/HCPCS: 99213 ==

== ENCOUNTER 2023-02-23 06:00 | Outpatient (RCR) | payer MEDICARE, MEDICAID, SELFPAY | END 2023-03-25 23:59 | disposition home or self-care (01) | LOC: SPT 06:00 | PROVIDERS: PCP Nurse Practitioner Family; Visit Provider Orthopaedic Surgery | DX: M54.50 Low back pain, unspecified | CPT/HCPCS: 97110 ==

== ENCOUNTER 2023-03-26 06:00 | Outpatient (RCR) | payer MEDICARE, MEDICAID, SELFPAY | END 2023-04-22 08:21 | disposition home or self-care (01) | LOC: SPT 06:00 | PROVIDERS: PCP Internal Medicine; Visit Provider Orthopaedic Surgery | DX: M54.50 Low back pain, unspecified (principal) | CPT/HCPCS: 97110 ==

== ENCOUNTER 2023-04-02 13:02 | Outpatient (CLI) | payer MEDICARE, MEDICAID, SELFPAY ==
--- NOTE | 2023-04-02 13:18 | MR_ITS ---
WS: [id number] MRI LEFT KNEE NONCONTRAST TECHNIQUE: Axial PD, coronal PD fat sat, coronal PD, sagittal PD, and sagittal PD fat-sat images obta ined. CLINICAL INFORMATION: PAIN IN LEFT KNEE COMPARISON: 03/13/2022 radiograph FINDINGS: Some images degraded by motion. Distal quadriceps and patellar tendons are intact. Hypertrophic patella. Moderate chondromalacia donovan lla. No subchondral edema. No significant suprapatellar effusion. Normal medial and lateral patellar retinaculum. Normal medial and lateral collateral ligaments. Normal popliteus. Normal popliteal fossa. Normal bone marrow is seen in the femoral condyles and tibial plateau. Mild chronic thinning of the medial and l ateral meniscus. No acute appearing meniscal tears. Mild peripheral extrusion of the medial meniscus. Moderate tricompartmental arthritis advanced for a patient of this age. No other suspicious findings . IMPRESSION: 1. Normal ACL and PCL. 2. Moderate chondromalacia patella. No subchondral edema. 3. Chronic thinning of the medial lateral meniscus. No acute appearing meniscal tears. Mild peripher al extrusion of the medial meniscus. 4. Moderate tricompartmental arthritis with joint space narrowing advanced for patient this age. 5. No other acute findings. * Outbridge grading: grade III: partial-thickness cartilage loss with focal ulceration
== END 2023-04-02 13:03 | disposition home or self-care (01) ==
PROVIDERS: PCP Internal Medicine; Visit Provider Internal Medicine
DX: M17.12 Unilateral primary osteoarthritis, left knee (principal); M22.42 Chondromalacia patellae, left knee
CPT/HCPCS: 73721

== ENCOUNTER → 2023-05-09 14:59 | Outpatient (BNVA) | payer MEDICARE, MEDICAID, SELFPAY | PROVIDERS: PCP Internal Medicine; Visit Provider Internal Medicine | DX: E05.90 Thyrotoxicosis, unspecified without thyrotoxic crisis or storm (principal); E04.9 Nontoxic goiter, unspecified | CPT/HCPCS: 36415; 84439; 84443; 84480; 99214 ==

== ENCOUNTER → 2023-06-03 10:21 | Outpatient (BNVA) | payer MEDICARE, MEDICAID, SELFPAY | PROVIDERS: PCP Internal Medicine; Referring Provider Internal Medicine; Visit Provider Specialist | DX: M25.562 Pain in left knee (principal); G89.29 Other chronic pain; S89.92XA Unspecified injury of left lower leg, initial encounter; W19.XXXA Unspecified fall, initial encounter | CPT/HCPCS: 73560; 73565; 99204 ==

== ENCOUNTER → 2023-06-12 11:50 | Outpatient (BNVA) | payer MEDICARE, MEDICAID, SELFPAY | PROVIDERS: PCP Internal Medicine; Visit Provider Internal Medicine Cardiovascular Disease | DX: I25.10 Atherosclerotic heart disease of native coronary artery without angina pectoris (principal); G47.33 Obstructive sleep apnea (adult) (pediatric); E78.5 Hyperlipidemia, unspecified; I10 Essential (primary) hypertension; Z87.891 Personal history of nicotine dependence | CPT/HCPCS: 99214 ==

== ENCOUNTER → 2023-06-21 11:57 | Outpatient (BNVA) | payer MEDICARE, MEDICAID, SELFPAY | PROVIDERS: PCP Internal Medicine; Visit Provider Nurse Practitioner Family | DX: M54.50 Low back pain, unspecified (principal); S39.011A Strain of muscle, fascia and tendon of abdomen, initial encounter; X58.XXXA Exposure to other specified factors, initial encounter | CPT/HCPCS: 81000 ==

== ENCOUNTER → 2023-08-05 13:51 | Outpatient (BNVA) | payer MEDICARE, MEDICAID, SELFPAY | PROVIDERS: PCP Internal Medicine; Visit Provider Specialist | DX: M17.0 Bilateral primary osteoarthritis of knee (principal); S86.911D Strain of unspecified muscle(s) and tendon(s) at lower leg level, right leg, subsequent encounter; V89.2XXD Person injured in unspecified motor-vehicle accident, traffic, subsequent encounter | CPT/HCPCS: 99213 ==

== ENCOUNTER 2023-08-06 12:41 | Outpatient (CLI) | payer MEDICARE, MEDICAID, SELFPAY ==
--- NOTE | 2023-08-06 12:44 | MR_ITS ---
WS: [id number] MRI LEFT KNEE arthrogram, pre and post contrast. HISTORY: knee injury COMPARISON: 04/02/2023 Precontrast evaluation: ACL and PCL are intact. Tricompartment joint space narrowing with small osteo phytes. There is moderate fraying along the free edge of the posterior horn medial meniscus. This is seen best on the sagittal sequences. The remaining menisci are intact. No acute fractures or marrow e brenden. There is mild chondromalacia of the cartilage throughout the knee. No fractures or marrow edema . Collateral ligaments are negative. No joint effusion. Postcontrast evaluation: Good injection of the knee joint. Again noted is significant fraying along t he surface and free edge posterior horn medial meniscus. No definite tear. This is mostly surface fra lashell of the meniscus. A very tiny tear is not completely excluded. Mild chondromalacia. Small amount of contrast extends into the medial patellar cartilage. No ACL tear . No loose bodies. IMPRESSION: 1. Blunting with surface fraying involving the free edge posterior horn medial meniscus. Cannot ident jaiden a tear. This is most likely just significant fraying along the meniscus. 2. Mild chondromalacia patella most significant involving the medial patellar facet. No full-thicknes s defect. 3. Mild tricompartment joint space narrowing.
--- NOTE | 2023-08-06 13:00 | IR_ITS ---
WS: [id number] LEFT KNEE ARTHROGRAM (FLUOROSCOPY) LEFT knee arthrogram was performed in fluoroscopy prior to MRI evaluation. HISTORY: knee injury COMPARISON: None. FLUOROSCOPY TIME: 0min [id number] # of spot films: 3 Procedure, risks and complications were explained to the patient. Complications include but not limit ed to bleeding, infection and contrast reaction. Current medications are reviewed. Skin is cleansed with ChloraPrep. Skin is anesthetized with 1% buffered lidocaine. 22-gauge needle is inserted into the LEFT suprapatellar joint space. Approximately 30 cc of gadolinium mixture injected without complication. Patient will proceed to MRI evaluation immediately. No complications were encountered. Patient is instructed to watch for post procedure infection or ble eding. Patient is also instructed to contact the radiology department with any concerns. IMPRESSION: Uncomplicated LEFT knee joint injection prior to MR knee arthrogram.
== END 2023-08-06 12:42 | disposition home or self-care (01) ==
LOC: RAD 12:41
PROVIDERS: PCP Internal Medicine; Visit Provider Specialist
DX: M25.762 Osteophyte, left knee (principal); M22.42 Chondromalacia patellae, left knee; M25.562 Pain in left knee; S89.92XA Unspecified injury of left lower leg, initial encounter; X58.XXXA Exposure to other specified factors, initial encounter; Y93.9 Activity, unspecified; Y92.9 Unspecified place or not applicable; Y99.9 Unspecified external cause status
CPT/HCPCS: 27369; 73723; 77002; A9577; Q9966

== ENCOUNTER → 2023-08-07 14:08 | Outpatient (BNVA) | payer MEDICARE, MEDICAID, SELFPAY | PROVIDERS: PCP Internal Medicine; Visit Provider Physician Assistant | DX: M17.12 Unilateral primary osteoarthritis, left knee; S86.911D Strain of unspecified muscle(s) and tendon(s) at lower leg level, right leg, subsequent encounter; X58.XXXD Exposure to other specified factors, subsequent encounter | CPT/HCPCS: 73560; 73565; 99214 ==

== ENCOUNTER 2023-08-29 15:51 | Outpatient (RCR) | payer MEDICARE, MEDICAID, SELFPAY | END 2023-09-25 23:59 | disposition home or self-care (01) | LOC: SPT 15:51 | PROVIDERS: PCP Specialist; Visit Provider Nurse Practitioner | DX: M25.562 Pain in left knee (principal) | CPT/HCPCS: 97110; 97161 ==

== ENCOUNTER 2023-09-15 17:54 | Emergency (ER) | payer MEDICARE, MEDICAID, SELFPAY ==
[2023-09-15 17:57] VITALS: BMI 33.7
[2023-09-15 18:02] VITALS: BP 174/90; PULSE 74; RESP 16; TEMP 37.1; O2SAT 97
--- NOTE | 2023-09-15 18:35 | W.ED.PSYCHS ---
HPI - Psych General: Chief Complaint: Psychiatric Symptoms Stated Complaint: PSYCH EVAL Time Seen by Provider: 09/15/23 18:03 History of Present Illness: 43-year-old male presents to the emergency department escorted by the police officers. Patient is very cooperative and pleasant. He states that he has a significant other that has been with him for 19 years and that they live together, so he considers her his and they live as man and . The patient states that his has a significant history of behavioral health disorders and that she has been telling lies to cause disruption between him and her parents. The patient states that she said several times to her parents that he wanted to shoot himself with a gun and the patient denies that he said anything like that. He states that to disapprove her statements that he actually gave his guns to his [id number]. The patient has no history of behavioral health disorders, he has never been seen by behavioral health counselor and states that he has never been evaluated for inpatient psychiatric placement or evaluation. He states that this evening his continued to now get him and he states that he went into the front bedroom other house and barricaded the door so that she could not come in so that he can get some sleep. He states that the next thing that he knew the police were knocking on the door and requesting that he come to the hospital to be evaluated. Patient has been cooperative the entire time and does not appear to be agitated or angry. The patient's fidrkx-vu-dhw Jakub is here in the waiting room and does cooperate the patient's account of events. The patient's nrshmz-oj-jzf states that his daughter has had a longstanding history of telling lies and causing turmoil in the family and that is what she did this evening and that the patient has no history of ever wanting to harm himself or anyone else. The patient's hfodyf-rs-sxa did call on the phone and also corroborated the patient's statements. The patient's ayzaqt-hg-[id number] stated that her daughter had not been going to counseling as she was supposed to be doing and that is most likely why she has been more angry towards the patient. She states the patient has been with her daughter for 19 years and he has always been very patient intolerant of her throughout the relationship despite all of her daughter's attempts at disruption. Associated symptoms: Deny auditory hallucinations, visual hallucinations, depression, homicidal ideation or suicidal ideation Review of Systems General: Reports: 10 or more systems reviewed and unremarkable except in HPI and below Musc: Reports: back pain Psych: Denies: depression, mood swings, sleeping more, difficulty concentrating, visual hallucinations, auditory hallucinations, tactile hallucinations, suicidal ideation or homicidal ideation PFS ED PFSH: Medical History (Updated 09/15/23 @ 19:29 by Nam Delaney MD) Osteoarthritis of left knee Pain in both testicles Diverticulosis Hematemesis Family history of colon cancer Bleeding per rectum Prostatitis Morbid obesity Dyslipidemia Atypical chest pain Gross hematuria Hypertension Hyperlipidemia ASHD (arteriosclerotic heart disease) GERD (gastroesophageal reflux disease) Chronic back pain Acute cystitis Urolithiasis Surgical History H/O knee surgery H/O eye surgery H/O lithotripsy Family History Mother , 52 CAD (coronary artery disease) Cancer lung, colon Father , 60 Cancer CAD (coronary artery disease) Hypertension Grandmother CAD (coronary artery disease) Dementia Diabetes Grandfather CAD (coronary artery disease) Cancer Dementia Family/Other CAD (coronary artery disease) Cancer Chronic kidney disease (CKD) Lung disease Stroke Denies family history of Clotting disorder Suicide Anesthesia complication Bleeding disorder Social History Smoking and tobacco/nicotine status: former use of tobacco/nicotine Alcohol intake: never Substance/Drug Use: never Marital status: Life Partner Current occupational status: disabled Physical Exam Narrative: EXAM NARRATIVE: Constitutional: the patient appears well nourished and with normal development. Vital signs reviewed as documented. HENMT: Normocephalic, atraumatic. External ears normal appearance without drainage. Nose without drainage, normal appearance. Mucus membranes moist. Neck is supple, No jugular venous distension, trachea is midline, no appreciable carotid bruits. No lymphadenopathy. No meningeal signs. Flexion, extension and lateral rotation is without pain. Eyes: Pupils are equal, round, reactive to light and accommodation. No scleral icterus. Extra-ocular movement are intact. Thorax is symmetrical and with equal rise and fall with respirations. Resp: Lungs are clear to auscultation. No wheezes, rales, crackles or ronchi at present. Cardio: Regular rate and rhythm. Positive S1, S2. No appreciable murmurs, rubs or gallops. GI: Abdominal exam reveals normal bowel sounds to all quadrants. No organomegaly. No obvious palpable masses noted. No hepatomegally appreciated. Soft, non-tender to palpation. Extremity: Extremities are non-edematous and both femoral and pedal pulses are 2+ and equal bilaterally. Moves all extremities well, sensation in all extremities. Neuro: Alert and oriented x4, person, place, time and situation. Cranial nerves II through XII are grossly intact, there is no focal neurological deficits that I can appreciate at present. Motor strength in the upper and lower extremities are equal and bilateral 5/5. Psych: Cooperative, calm, normal thought process, appropriate judgment. Skin: No lesions, rashes. No gross abnormalities noted. Back: Symmetrical, no obvious deformity, No CVA tenderness Course ED course: After an extensive discussion with the patient and the patient's mother and [id number] I will discharge the patient home. He does not appear to be harm to self or others in any fashion at present. The patient remained very cooperative and calm during the entire ER visit and ambulated from the emergency department and met his umoiqv-po-bgo in the waiting room where they were talking and left the emergency department together. Vital Signs: Vital signs: Vital Signs Temperature 98.7 F 09/15/23 18:02 Pulse Rate 74 09/15/23 18:02 Respiratory Rate 16 09/15/23 18:02 Blood Pressure 174/90 09/15/23 18:02 Pulse Oximetry 97 09/15/23 18:02 Oxygen Delivery Me thod Room Air 09/15/23 18:02 MDM - Psych Medical Decision Making 43-year-old male presents emergency department at the request of the police department for evaluation he states that his fianc?e has been arguing with him a lot and is lying in called the police because she wants him out of the house because she may have a new boyfriend. Medical Records I reviewed the patient's medical records. Lab Data I reviewed the patient's lab results. Laboratory Results Urine Color Dark yellow (Yellow) 09/15/23 18:52 Urine Appearance Turbid (CLEAR) A 09/15/23 18:52 Urine pH 7 (5-7) 09/15/23 18:52 Ur Specific Dobbins 1.020 (1.005-1.030) 09/15/23 18:52 Urine Protein Neg (Negative) 09/15/23 18:52 Urine Glucose (UA) Norm (Normal) 09/15/23 18:52 Urine Ketones 1+ (Negative) H 09/15/23 18:52 Urine Blood Neg (Negative) 09/15/23 18:52 Urine Nitrate Positive (Negative) H 09/15/23 18:52 Urine Bilirubin Neg (Negative) 09/15/23 18:52 Urine Urobilinogen Norm mg/dL (Negative) 09/15/23 18:52 Ur Leukocyte Esterase Trace (Negative) H 09/15/23 18:52 Urine RBC 0-4 /hpf (0-2) H 09/15/23 18:52 Urine WBC 5-10 /hpf (0-5) H 09/15/23 18:52 Ur Squamous Epith Cells 0-4 /hpf (0-5) H 09/15/23 18:52 Amorphous Sediment 2+ /hpf 09/15/23 18:52 Urine Bacteria 3+ /hpf (NONE) H 09/15/23 18:52 Urine Mucus 2+ /hpf 09/15/23 18:52 Urine Opiates Screen Negative ng/mL (Negative) 09/15/23 18:52 Ur Barbiturates Screen Negative ng/mL (Negative) 09/15/23 18:52 Ur Phencyclidine Scrn Negative ng/mL (Negative) 09/15/23 18:52 Ur Amphetamines Screen Negative ng/mL (Negative) 09/15/23 18:52 U Benzodiazepines Scrn Negative ng/mL (Negative) 09/15/23 18:52 Urine Cocaine Screen Negative ng/mL (Negative) 09/15/23 18:52 U Marijuana (THC) Screen Negative ng/mL (Negative) 09/15/23 18:52 No radiology studies performed this visit Discharge Plan Discharge Patient Disposition: Home Clinical Impression: Relationship problem between partners, Acute UTI Condition: Stable Prescriptions: New nitrofurantoin monohyd/m-cryst [Macrobid] 100 mg capsule 100 mg PO Q12H 7 Days Qty: 14 0RF Rx Instructions: must administer with a meal/food No Action mecobalamin (vitamin B12) 1,000 mcg tablet,chewable 1,000 mcg PO DAILY Dexilant 60 mg capsule,biphase delayed releas 60 mg PO DAILY tadalafil 20 mg tablet 20 mg PO DAILY PRN (Reason: sexual activity) Qty: 10 5RF Rx Instructions: TAKE 30min before sexual activity; do not use more than 1 dose per 24hrs; NO NITROGLYCERIN!!!!! chlorthalidone 25 mg tablet 50 mg PO DAILY nitroglycerin 0.4 mg tablet, sublingual 0.4 mg sublingual Q5M PRN (Reason: chest pain) 30 Days Qty: 30 3RF Rx Instructions: until response; do not exceed 3 doses per episode (DME) Hinged Left knee brace, See Rx Instructions .Route .MEDSUPPLY Qty: 1 0RF Rx Instructions: As directed fluticasone propion-salmeterol [Wixela Inhub] 100-50 mcg/dose blister with device 1 inh inhalation BID (DME) TENS Unit See Rx Instructions .Route .MEDSUPPLY Qty: 1 0RF Rx Instructions: As directed acetaminophen [Tylenol Arthritis Pain] 650 mg tablet extended release 650 mg PO Q12H meloxicam 15 mg tablet 15 mg PO DAILY Qty: 30 0RF Rx Instructions: Take one tablet once daily celecoxib [Celebrex] 100 mg capsule 100 mg PO BID Qty: 60 2RF carvedilol 25 mg tablet 25 mg PO BID Qty: 180 3RF amlodipine 5 mg tablet 10 mg PO DAILY Qty: 180 3RF Rx Instructions: TAKE 1 TABLET BY MOUTH TWICE A DAY ranolazine 500 mg tablet extended release 12 hr 500 mg PO BID 90 Days Qty: 180 5RF methimazole 5 mg tablet 15 mg PO DAILY 30 Days Qty: 90 2RF spironolactone 25 mg tablet See Rx Instructions .ROUTE .COMPLEX Qty: 90 3RF Dose Instruction: TAKE 1 TABLET BY MOUTH EVERY DAY Rx Instructions: TAKE 1 TABLET BY MOUTH EVERY DAY simvastatin 20 mg tablet See Rx Instructions .ROUTE .COMPLEX Qty: 90 3RF Dose Instruction: TAKE 1 TABLET BY MOUTH EVERY DAY Rx Instructions: TAKE 1 TABLET BY MOUTH EVERY DAY hydralazine 100 mg tablet 100 mg PO TID Qty: 270 1RF ezetimibe 10 mg tablet See Rx Instructions .ROUTE .COMPLEX Qty: 90 3RF Dose Instruction: TAKE 1 TABLET BY MOUTH EVERY DAY Rx Instructions: TAKE 1 TABLET BY MOUTH EVERY DAY albuterol sulfate 90 mcg/actuation HFA aerosol inhaler 90 puff INHALATION PRN PRN (Reason: Allergy Symptoms) Discharge Orders: Discharge ED (Routine); Ordered 09/15/23 Ordered By: Nam Delaney Referrals: Melanie Madsen MD [Primary Care Provider] - Discharge Diet: Advance as tolerated Discharge Activity: Resume usual activity Patient Instructions: Opioid Safety, Pain Management Coding Level of Care Code ED Health Outcomes Liaison for Alejandro Vega
--- NOTE | 2023-09-15 18:41 | PC.NURSE ---
Went in to patient's room and asked him what brought him to the ER, he stated that he talked to the doctor and he doesn't want to speak to anyone else. I asked the patient if he could provide a urine sample and he said no he did not need to pee.
[2023-09-15 19:15] LABS: Urine Appearance Turbid (CLEAR); Urine Color Dark Yellow (Yellow); pH Urine 7 (5-7)
[2023-09-15 19:16] LABS: Add Urine Culture? Yes; Add Urine Microscopic? YES; Amorphous Sediment Urine 2+ /hpf; Amphetamines Screen Urine Negative (Negative); Bacteria Urine 3+ /hpf; Barbiturates Screen Urine Negative (Negative); Benzodiazepines Screen Urine Negative (Negative); Bilirubin Urine Neg (Negative); Blood Urine Neg (Negative); Cocaine Screen Urine Negative (Negative); Glucose Urine UA Norm (Normal); Ketones Urine 1+ (Negative); Leukocyte Esterase Urine Trace (Negative); Mucus Urine 2+ /hpf; Nitrate Urine Positive (Negative); Opiate Screen Urine Negative (Negative); PCP Screen Urine Negative (Negative); Protein Urine Neg (Negative); RBC Urine 0-4 /hpf (0-2); Squamous Epithelial Cell Urine 0-4 /hpf (0-5); THC Screen Urine Negative (Negative); Urobilinogen Urine Norm (Negative)
== END 2023-09-15 19:36 | disposition home or self-care (01) ==
PROVIDERS: Emergency Provider Internal Medicine; PCP Specialist
DX: Z63.0 Problems in relationship with spouse or partner (principal); N39.0 Urinary tract infection, site not specified; Z87.891 Personal history of nicotine dependence; E78.5 Hyperlipidemia, unspecified; I10 Essential (primary) hypertension; Z87.440 Personal history of urinary (tract) infections
CPT/HCPCS: 80306; 81001; 87077; 87086; 87186; 99283

== ENCOUNTER → 2023-09-19 08:47 | Outpatient (BNVA) | payer MEDICARE, MEDICAID, SELFPAY | PROVIDERS: PCP Internal Medicine Cardiovascular Disease; Visit Provider Internal Medicine | DX: E05.00 Thyrotoxicosis with diffuse goiter without thyrotoxic crisis or storm; R45.86 Emotional lability | CPT/HCPCS: 36415; 80053; 84439; 84443; 84480; 85025; 99214 ==

== ENCOUNTER 2023-09-26 06:00 | Outpatient (RCR) | payer MEDICARE, MEDICAID, SELFPAY | END 2023-10-10 23:59 | disposition home or self-care (01) | LOC: SPT 06:00 | PROVIDERS: PCP Internal Medicine Cardiovascular Disease; Visit Provider Nurse Practitioner | DX: M25.562 Pain in left knee (principal); M23.52 Chronic instability of knee, left knee | CPT/HCPCS: 97110 ==

== ENCOUNTER → 2023-11-06 09:52 | Outpatient (BNVA) | payer MEDICARE, MEDICAID, SELFPAY | PROVIDERS: PCP Internal Medicine Cardiovascular Disease; Visit Provider Nurse Practitioner | DX: M51.16 Intervertebral disc disorders with radiculopathy, lumbar region; M17.12 Unilateral primary osteoarthritis, left knee; S86.911D Strain of unspecified muscle(s) and tendon(s) at lower leg level, right leg, subsequent encounter; W19.XXXD Unspecified fall, subsequent encounter | CPT/HCPCS: 73560; 73565; 99213 ==

== ENCOUNTER → 2023-11-11 09:57 | Outpatient (BNVA) | payer MEDICARE, MEDICAID, SELFPAY | PROVIDERS: Visit Provider Internal Medicine | DX: E78.2 Mixed hyperlipidemia (principal); E05.90 Thyrotoxicosis, unspecified without thyrotoxic crisis or storm; E04.9 Nontoxic goiter, unspecified; E05.00 Thyrotoxicosis with diffuse goiter without thyrotoxic crisis or storm; R45.86 Emotional lability | CPT/HCPCS: 99214 ==

== ENCOUNTER 2023-11-12 11:28 | Outpatient (CLI) | payer MEDICARE, MEDICAID, SELFPAY ==
[2023-11-12 11:59] LABS: Basophils # 0.1 10^3/uL (0.0-0.1); Basophils % 0.5 %; Eosinophils # 0.2 10^3/uL (0.0-0.8); Eosinophils % 2.3 %; Hematocrit 53.7 % (37-53); Lymphocytes # 2.4 10^3/uL (0.8-4.8); Lymphocytes % 26.2 %; Mean Corpuscular HGB Conc 33.3 g/dL (30-55); Mean Corpuscular Hemoglobin 29.2 pg (27-33); Mean Corpuscular Volume 87.7 fl (82-101); Mean Platelet Volume 10.9 fL (7.4-10.4); Monocytes # 0.5 10^3/uL (0.2-0.9); Monocytes % 5.3 %; Neutrophils % 65.3 %; Nucleated Red Blood Cells % 0 %; Platelet Count 366 10^3/cmm (157-399); Red Blood Count 6.12 10^6/uL (3.85-5.65); Red Cell Distribution Width 13.6 % (12.1-15.1)
[2023-11-12 12:30] LABS: Alanine Aminotransferase 18 U/L (0-41); Albumin Level 4.1 g/dL (3.5-5.2); Alkaline Phosphatase 118 U/L (40-130); Anion Gap 14.4 (5-19); Aspartate Amino Transferase 15 U/L (0-40); Blood Urea Nitrogen 11 mg/dL (6-20); Calcium 9.2 mg/dL (8.5-10.5); Carbon Dioxide 26 mmol/L (22-29); Chloride 100 mmol/L (98-107); Globulin 3.1 g/dL (1.3-4.6); Glucose 119 mg/dL (65-115); Osmolality Calculated 285 mOsm/kg (285-295); Potassium 3.4 mmol/L (3.5-5.1); Sodium 137 mmol/L (136-145); Thyroid Stimulating Hormone 0.01 uIU/mL (0.27-4.20); Total Bilirubin 0.6 mg/dL (0.15-1.2); Total Protein 7.2 g/dL (6.6-8.7)
[2023-11-12 14:03] LABS: Free T4 Free Thyroxine 1.55 ng/dL (0.82-1.77)
[2023-11-14 05:09] LABS: T3 Total 162 ng/dL (76-181)
== END 2023-11-12 11:29 | disposition home or self-care (01) ==
LOC: LAB 11:30
PROVIDERS: PCP Internal Medicine; Visit Provider Internal Medicine
DX: E05.90 Thyrotoxicosis, unspecified without thyrotoxic crisis or storm (principal); E04.9 Nontoxic goiter, unspecified; E05.00 Thyrotoxicosis with diffuse goiter without thyrotoxic crisis or storm; E78.2 Mixed hyperlipidemia
CPT/HCPCS: 36415; 80053; 84439; 84443; 84480; 85025

== ENCOUNTER 2023-11-20 06:00 | Outpatient (RCR) | payer MEDICARE, MEDICAID, SELFPAY | END 2023-11-24 23:59 | disposition home or self-care (01) | LOC: SPT 06:00 | PROVIDERS: PCP Internal Medicine; Visit Provider Nurse Practitioner | DX: M17.12 Unilateral primary osteoarthritis, left knee (principal); M51.16 Intervertebral disc disorders with radiculopathy, lumbar region | CPT/HCPCS: 97110; 97161 ==

== ENCOUNTER 2023-11-25 06:00 | Outpatient (RCR) | payer MEDICARE, MEDICAID, SELFPAY | END 2023-12-24 23:59 | disposition home or self-care (01) | LOC: SPT 06:00 | PROVIDERS: PCP Internal Medicine; Visit Provider Nurse Practitioner | DX: M17.12 Unilateral primary osteoarthritis, left knee (principal); M51.16 Intervertebral disc disorders with radiculopathy, lumbar region | CPT/HCPCS: 97110 ==

== ENCOUNTER 2023-12-25 06:00 | Outpatient (RCR) | payer MEDICARE, MEDICAID, SELFPAY | END 2024-01-24 23:59 | disposition home or self-care (01) | LOC: SPT 06:00 | PROVIDERS: PCP Internal Medicine; Visit Provider Nurse Practitioner | DX: M17.12 Unilateral primary osteoarthritis, left knee (principal); M51.16 Intervertebral disc disorders with radiculopathy, lumbar region | CPT/HCPCS: 97110 ==

== ENCOUNTER → 2024-01-09 11:25 | Outpatient (BNVA) | payer MEDICARE, MEDICAID, SELFPAY | PROVIDERS: PCP Internal Medicine; Visit Provider Internal Medicine Cardiovascular Disease | DX: E78.5 Hyperlipidemia, unspecified (principal) | CPT/HCPCS: 80061; 80076 ==

== ENCOUNTER → 2024-01-15 10:34 | Outpatient (BNVA) | payer MEDICARE, MEDICAID, SELFPAY | PROVIDERS: PCP Internal Medicine; Visit Provider Internal Medicine | DX: E05.00 Thyrotoxicosis with diffuse goiter without thyrotoxic crisis or storm; E78.2 Mixed hyperlipidemia; E04.9 Nontoxic goiter, unspecified; R45.86 Emotional lability | CPT/HCPCS: 80053; 84439; 84443; 84480; 99214 ==

== ENCOUNTER 2024-01-25 06:00 | Outpatient (RCR) | payer MEDICARE, MEDICAID, SELFPAY | END 2024-02-23 23:59 | disposition home or self-care (01) | LOC: SPT 06:00 | PROVIDERS: PCP Internal Medicine; Visit Provider Nurse Practitioner | DX: M17.12 Unilateral primary osteoarthritis, left knee (principal); M54.16 Radiculopathy, lumbar region | CPT/HCPCS: 97110 ==

== ENCOUNTER → 2024-03-02 13:01 | Outpatient (BNVA) | payer MEDICARE, MEDICAID, SELFPAY | PROVIDERS: PCP Internal Medicine; Visit Provider Nurse Practitioner | DX: M17.12 Unilateral primary osteoarthritis, left knee; M51.16 Intervertebral disc disorders with radiculopathy, lumbar region | CPT/HCPCS: 73560; 73565; 99213 ==

== ENCOUNTER → 2024-03-12 15:51 | Outpatient (BNVA) | payer MEDICARE, MEDICAID, SELFPAY | PROVIDERS: PCP Internal Medicine; Visit Provider Orthopaedic Surgery | DX: M48.062 Spinal stenosis, lumbar region with neurogenic claudication (principal); M51.16 Intervertebral disc disorders with radiculopathy, lumbar region | CPT/HCPCS: 72110; 99213 ==

== ENCOUNTER 2024-03-26 11:41 | Outpatient (RCR) | payer MEDICARE, MEDICAID, SELFPAY | END 2024-04-25 23:59 | disposition home or self-care (01) | LOC: SPT 11:41 | PROVIDERS: Visit Provider Orthopaedic Surgery | DX: M54.9 Dorsalgia, unspecified (principal); G89.29 Other chronic pain | CPT/HCPCS: 97110; 97161 ==

== ENCOUNTER 2024-04-17 09:47 | Outpatient (CLI) | payer MEDICARE, MEDICAID, SELFPAY ==
[2024-04-17 10:32] LABS: Alanine Aminotransferase 26 U/L (0-41); Albumin Level 4.3 g/dL (3.5-5.2); Alkaline Phosphatase 92 U/L (40-130); Anion Gap 15.7 (5-19); Aspartate Amino Transferase 21 U/L (0-40); Blood Urea Nitrogen 16 mg/dL (6-20); Calcium 9.1 mg/dL (8.5-10.5); Carbon Dioxide 27 mmol/L (22-29); Chloride 100 mmol/L (98-107); Free T4 Free Thyroxine 1.76 ng/dL (0.82-1.77); Globulin 3.2 g/dL (1.3-4.6); Glomerular Filtration Rate 92.1 mL/min (90-130); Glucose 143 mg/dL (65-115); Osmolality Calculated 292 mOsm/kg (285-295); Potassium 3.7 mmol/L (3.5-5.1); Sodium 139 mmol/L (136-145); Thyroid Stimulating Hormone 0.01 uIU/mL (0.27-4.20); Total Bilirubin 0.9 mg/dL (0.15-1.2); Total Protein 7.5 g/dL (6.6-8.7)
[2024-04-20 19:30] LABS: T3 Total 184 ng/dL (76-181)
== END 2024-04-17 09:48 | disposition home or self-care (01) ==
LOC: LAB 09:51
PROVIDERS: Visit Provider Internal Medicine
DX: E05.90 Thyrotoxicosis, unspecified without thyrotoxic crisis or storm (principal); E05.00 Thyrotoxicosis with diffuse goiter without thyrotoxic crisis or storm
CPT/HCPCS: 36415; 80053; 84439; 84443; 84480; 99214

== ENCOUNTER 2024-04-26 06:00 | Outpatient (RCR) | payer MEDICARE, MEDICAID, SELFPAY | END 2024-05-25 23:59 | disposition home or self-care (01) | LOC: SPT 06:00 | PROVIDERS: Visit Provider Orthopaedic Surgery | DX: M54.9 Dorsalgia, unspecified (principal); G89.29 Other chronic pain | CPT/HCPCS: 97110 ==

== ENCOUNTER → 2024-05-21 07:44 | Outpatient (BNVA) | payer MEDICARE, MEDICAID, SELFPAY | PROVIDERS: Visit Provider Orthopaedic Surgery | DX: Z09 Encounter for follow-up examination after completed treatment for conditions other than malignant neoplasm (principal) | CPT/HCPCS: 99213 ==

== ENCOUNTER 2024-05-26 06:00 | Outpatient (RCR) | payer MEDICARE, MEDICAID, SELFPAY | END 2024-06-25 23:59 | disposition home or self-care (01) | LOC: SPT 06:00 | PROVIDERS: Visit Provider Orthopaedic Surgery | DX: M54.9 Dorsalgia, unspecified (principal); G89.29 Other chronic pain | CPT/HCPCS: 97110 ==

== ENCOUNTER 2024-06-26 06:00 | Outpatient (RCR) | payer MEDICARE, MEDICAID, SELFPAY | END 2024-07-25 23:59 | disposition home or self-care (01) | LOC: SPT 06:00 | PROVIDERS: PCP Internal Medicine; Visit Provider Orthopaedic Surgery | DX: M54.9 Dorsalgia, unspecified (principal); G89.29 Other chronic pain | CPT/HCPCS: 97110 ==

== ENCOUNTER 2024-06-26 13:44 | Outpatient (CLI) | payer MEDICARE, MEDICAID, SELFPAY ==
--- NOTE | 2024-06-26 13:49 | XR_ITS ---
WS: [id number] KUB, AP view, 06/26/2024 Clinical Data: BILATERAL NEPHROLITHIASIS Comparison: KUB, 09/03/2022 Findings: No abnormal intraabdominal masses or calcifications are seen. There is no dilatated small bowel or ev idence of obstruction. No distinct renal calculi are seen. There is moderate fecal material throughout the colon. XR/XR KUB [id number] Impression: Negative KUB.
== END 2024-06-26 13:45 | disposition home or self-care (01) ==
PROVIDERS: PCP Internal Medicine; Visit Provider Nurse Practitioner Family
DX: N20.0 Calculus of kidney (principal)
CPT/HCPCS: 74018

== ENCOUNTER 2024-07-26 06:00 | Outpatient (RCR) | payer MEDICARE, MEDICAID, SELFPAY | END 2024-08-25 23:59 | disposition home or self-care (01) | LOC: SPT 06:00 | PROVIDERS: PCP Internal Medicine; Visit Provider Orthopaedic Surgery | DX: M54.9 Dorsalgia, unspecified (principal); G89.29 Other chronic pain | CPT/HCPCS: 97110 ==

== ENCOUNTER 2024-08-11 15:33 | Outpatient (CLI) | payer MEDICARE, MEDICAID, SELFPAY ==
[2024-08-11 17:55] LABS: Alanine Aminotransferase 35 U/L (0-41); Albumin Level 4.2 g/dL (3.5-5.2); Alkaline Phosphatase 84 U/L (40-130); Anion Gap 19.2 (5-19); Aspartate Amino Transferase 30 U/L (0-40); Blood Urea Nitrogen 19 mg/dL (6-20); Calcium 9.2 mg/dL (8.5-10.5); Carbon Dioxide 27 mmol/L (22-29); Chloride 101 mmol/L (98-107); Globulin 3.3 g/dL (1.3-4.6); Glomerular Filtration Rate 92.1 mL/min (90-130); Glucose 85 mg/dL (65-115); Osmolality Calculated 300 mOsm/kg (285-295); Potassium 3.2 mmol/L (3.5-5.1); Sodium 144 mmol/L (136-145); Thyroid Stimulating Hormone 0.17 uIU/mL (0.27-4.20); Total Bilirubin 0.7 mg/dL (0.15-1.2); Total Protein 7.5 g/dL (6.6-8.7)
[2024-08-12 08:10] LABS: T3 Total 139 ng/dL (76-181)
== END 2024-08-11 15:34 | disposition home or self-care (01) ==
LOC: LAB 15:35
PROVIDERS: PCP Internal Medicine; Visit Provider Internal Medicine
DX: E78.2 Mixed hyperlipidemia (principal); E04.9 Nontoxic goiter, unspecified; E05.00 Thyrotoxicosis with diffuse goiter without thyrotoxic crisis or storm
CPT/HCPCS: 36415; 80053; 84439; 84443; 84480

== ENCOUNTER → 2024-09-15 15:02 | Outpatient (BNVA) | payer MEDICARE, MEDICAID, SELFPAY | PROVIDERS: PCP Internal Medicine; Visit Provider Orthopaedic Surgery | DX: M48.062 Spinal stenosis, lumbar region with neurogenic claudication (principal) | CPT/HCPCS: 72110; 99213 ==

== ENCOUNTER 2024-10-01 10:08 | Outpatient (RCR) | payer MEDICARE, MEDICAID, SELFPAY | END 2024-10-23 23:59 | disposition home or self-care (01) | LOC: SPT 10:08 | PROVIDERS: Visit Provider Orthopaedic Surgery | DX: M54.50 Low back pain, unspecified (principal); G89.29 Other chronic pain | CPT/HCPCS: 97110; 97161 ==

== ENCOUNTER 2024-10-24 06:00 | Outpatient (RCR) | payer MEDICARE, MEDICAID, SELFPAY | END 2024-11-23 23:59 | disposition home or self-care (01) | LOC: SPT 06:00 | PROVIDERS: PCP Internal Medicine; Visit Provider Orthopaedic Surgery | DX: M54.50 Low back pain, unspecified (principal); G89.29 Other chronic pain | CPT/HCPCS: 97110 ==

== ENCOUNTER → 2024-11-04 08:15 | Outpatient (BNVA) | payer MEDICARE, MEDICAID, SELFPAY | PROVIDERS: PCP Internal Medicine; Visit Provider Specialist | DX: M17.12 Unilateral primary osteoarthritis, left knee (principal); Z68.42 Body mass index [BMI] 45.0-49.9, adult | CPT/HCPCS: 73560; 73565; 99214 ==

== ENCOUNTER 2024-11-11 10:49 | Outpatient (CLI) | payer MEDICARE, MEDICAID, SELFPAY ==
[2024-11-11 12:47] LABS: Basophils # 0.1 10^3/uL (0.0-0.1); Basophils % 0.6 %; Eosinophils # 0.3 10^3/uL (0.0-0.8); Eosinophils % 2.9 %; Lymphocytes # 2.6 10^3/uL (0.8-4.8); Lymphocytes % 28.2 %; Mean Corpuscular HGB Conc 32.8 g/dL (30-55); Mean Corpuscular Hemoglobin 29.4 pg (27-33); Mean Corpuscular Volume 89.8 fl (82-101); Mean Platelet Volume 11.3 fL (7.4-10.4); Monocytes # 0.8 10^3/uL (0.2-0.9); Monocytes % 8.3 %; Neutrophils # 5.55 10^3/uL (1.8-7.7); Neutrophils % 59.7 %; Nucleated Red Blood Cells % 0 %; Platelet Count 329 10^3/cmm (157-399); Red Blood Count 5.57 10^6/uL (3.85-5.65); Red Cell Distribution Width 13.1 % (12.1-15.1)
[2024-11-11 13:29] LABS: Alanine Aminotransferase 24 U/L (0-41); Albumin Level 3.9 g/dL (3.5-5.2); Alkaline Phosphatase 79 U/L (40-130); Anion Gap 15.1 (5-19); Aspartate Amino Transferase 30 U/L (0-40); Blood Urea Nitrogen 15 mg/dL (6-20); Calcium 8.8 mg/dL (8.5-10.5); Carbon Dioxide 28 mmol/L (22-29); Chloride 100 mmol/L (98-107); Free T4 Free Thyroxine 1.21 ng/dL (0.82-1.77); Globulin 3.1 g/dL (1.3-4.6); Glomerular Filtration Rate 122.5 mL/min (90-130); Glucose 88 mg/dL (65-115); Osmolality Calculated 290 mOsm/kg (285-295); Potassium 3.1 mmol/L (3.5-5.1); Sodium 140 mmol/L (136-145); Thyroid Stimulating Hormone 0.23 uIU/mL (0.27-4.20); Total Bilirubin 0.8 mg/dL (0.15-1.2)
[2024-11-12 09:20] LABS: T3 Total 121 ng/dL (76-181)
== END 2024-11-11 10:50 | disposition home or self-care (01) ==
LOC: LAB 10:53
PROVIDERS: PCP Internal Medicine; Visit Provider Internal Medicine
DX: E05.90 Thyrotoxicosis, unspecified without thyrotoxic crisis or storm (principal); E04.9 Nontoxic goiter, unspecified; E05.00 Thyrotoxicosis with diffuse goiter without thyrotoxic crisis or storm; E78.2 Mixed hyperlipidemia
CPT/HCPCS: 36415; 80053; 84439; 84443; 84480; 85025

== ENCOUNTER → 2024-11-12 11:33 | Outpatient (BNVA) | payer MEDICARE, MEDICAID, SELFPAY | PROVIDERS: PCP Internal Medicine; Visit Provider Internal Medicine | DX: E04.9 Nontoxic goiter, unspecified (principal); E05.00 Thyrotoxicosis with diffuse goiter without thyrotoxic crisis or storm; R45.86 Emotional lability | CPT/HCPCS: 99214 ==

== ENCOUNTER → 2024-11-21 16:01 | Outpatient (BNVA) | payer MEDICARE, MEDICAID, SELFPAY | PROVIDERS: PCP Internal Medicine; Visit Provider Registered Nurse Neonatal Intensive Care | DX: R50.9 Fever, unspecified (principal) | CPT/HCPCS: 87400 ==

== ENCOUNTER 2024-11-24 06:00 | Outpatient (RCR) | payer MEDICARE, MEDICAID, SELFPAY | END 2024-12-23 23:59 | disposition home or self-care (01) | LOC: SPT 06:00 | PROVIDERS: PCP Internal Medicine; Visit Provider Orthopaedic Surgery | DX: M54.50 Low back pain, unspecified (principal); G89.29 Other chronic pain | CPT/HCPCS: 97110 ==

== ENCOUNTER 2024-11-24 15:08 | Outpatient (CLI) | payer MEDICARE, MEDICAID, SELFPAY ==
--- NOTE | 2024-11-24 15:15 | MR_ITS ---
WS: [id number] MRI LEFT KNEE NONCONTRAST TECHNIQUE: Axial PD, coronal PD fat sat, coronal PD, sagittal PD, and sagittal PD fat-sat images obtained. CLINICAL INFORMATION: knee pain COMPARISON: MRI 2022 FINDINGS: Moderate tricompartment arthritis LEFT knee. Distal quadriceps and patella tendons are intact. ACL and PCL appear intact. Moderate chondromalacia patella similar to previous. Medial and lateral patellar retinaculum appear intact. Normal lateral meniscus. Mild peripheral extrusion of the medial meniscus. No acute appearing meniscal tears. Medial and lateral collateral ligaments appear intact. Popliteus appear intact. Fibular head appears normal. Normal popliteal fossa. No other significant changes. MR/MR knee LT wo con* [id number] IMPRESSION: 1. Moderate tricompartment arthritis. 2. ACL and PCL appear intact. 3. Moderate chondromalacia patella grade 3. Small effusion. 4. Normal lateral meniscus. Slight peripheral extrusion of the medial meniscus . No acute appearing meniscal tears. 5. Presumed prior partial medial meniscectomy. 6. No other acute findings. Outbridge grading: grade III: partial-thickness cartilage loss with focal ulcer ation
== END 2024-11-24 15:09 | disposition home or self-care (01) ==
PROVIDERS: PCP Internal Medicine; Visit Provider Specialist
DX: M17.12 Unilateral primary osteoarthritis, left knee (principal); M22.42 Chondromalacia patellae, left knee; R93.6 Abnormal findings on diagnostic imaging of limbs
CPT/HCPCS: 73721

== ENCOUNTER → 2024-12-07 10:10 | Outpatient (BNVA) | payer MEDICARE, MEDICAID, SELFPAY | PROVIDERS: PCP Internal Medicine; Visit Provider Specialist | DX: M17.12 Unilateral primary osteoarthritis, left knee (principal) | CPT/HCPCS: 99214 ==

== ENCOUNTER 2024-12-30 14:46 | Outpatient (RCR) | payer MEDICARE, MEDICAID, SELFPAY | END 2025-01-23 23:59 | disposition home or self-care (01) | LOC: SPT 14:46 | PROVIDERS: PCP Internal Medicine; Visit Provider Specialist | DX: M17.12 Unilateral primary osteoarthritis, left knee (principal) | CPT/HCPCS: 97110 ==

== ENCOUNTER 2024-12-30 14:49 | Outpatient (RCR) | payer MEDICARE, MEDICAID, SELFPAY | END 2024-12-31 10:51 | disposition home or self-care (01) | LOC: SPT 14:49 | PROVIDERS: PCP Internal Medicine; Visit Provider Orthopaedic Surgery | DX: M54.50 Low back pain, unspecified (principal); G89.29 Other chronic pain | CPT/HCPCS: 97110 ==

== ENCOUNTER 2025-01-08 12:59 | Outpatient (CLI) | payer MEDICARE, MEDICAID, SELFPAY ==
[2025-01-08 14:07] LABS: Free T4 Free Thyroxine 1.17 ng/dL (0.82-1.77); Thyroid Stimulating Hormone 0.69 uIU/mL (0.27-4.20)
[2025-01-09 08:48] LABS: T3 Total 142 ng/dL (76-181)
== END 2025-01-08 13:00 | disposition home or self-care (01) ==
LOC: LAB 13:01
PROVIDERS: PCP Internal Medicine; Visit Provider Internal Medicine
DX: E78.2 Mixed hyperlipidemia (principal); E05.90 Thyrotoxicosis, unspecified without thyrotoxic crisis or storm; E04.9 Nontoxic goiter, unspecified; E05.00 Thyrotoxicosis with diffuse goiter without thyrotoxic crisis or storm; R45.86 Emotional lability
CPT/HCPCS: 36415; 84439; 84443; 84480

== ENCOUNTER 2025-01-24 06:30 | Outpatient (RCR) | payer MEDICARE, MEDICAID, SELFPAY | END 2025-02-05 13:22 | disposition home or self-care (01) | LOC: SPT 06:30 | PROVIDERS: PCP Internal Medicine; Visit Provider Specialist | DX: M17.12 Unilateral primary osteoarthritis, left knee (principal) | CPT/HCPCS: 97110 ==

== ENCOUNTER 2025-02-12 11:22 | Outpatient (CLI) | payer MEDICARE, MEDICAID, SELFPAY ==
[2025-02-12 12:05] LABS: Free T4 Free Thyroxine 1.19 ng/dL (0.82-1.77); Thyroid Stimulating Hormone 1.31 uIU/mL (0.27-4.20)
== END 2025-02-12 11:23 | disposition home or self-care (01) ==
LOC: LAB 11:25
PROVIDERS: PCP Internal Medicine; Visit Provider Internal Medicine
DX: E78.2 Mixed hyperlipidemia (principal)
CPT/HCPCS: 36415; 84439; 84443

== ENCOUNTER → 2025-02-15 08:20 | Outpatient (BNVA) | payer MEDICARE, MEDICAID, SELFPAY | PROVIDERS: PCP Internal Medicine; Visit Provider Internal Medicine | DX: E04.9 Nontoxic goiter, unspecified (principal); E05.00 Thyrotoxicosis with diffuse goiter without thyrotoxic crisis or storm; E78.2 Mixed hyperlipidemia | CPT/HCPCS: 99214 ==

== ENCOUNTER → 2025-02-17 09:43 | Outpatient (BNVA) | payer MEDICARE, MEDICAID, SELFPAY | PROVIDERS: PCP Internal Medicine; Visit Provider Specialist | DX: M17.12 Unilateral primary osteoarthritis, left knee (principal) | CPT/HCPCS: 99213 ==

== ENCOUNTER 2025-02-24 07:25 | Outpatient (CLI) | payer MEDICARE, MEDICAID, SELFPAY ==
--- NOTE | 2025-02-24 07:30 | CT_ITS ---
WS: [id number] CT NECK TECHNIQUE: Contrast-enhanced CT of the neck with coronal and sagittal reformatted images. CLINICAL INFORMATION: TOXIC MULTINODULAR GOITER COMPARISON: Ultrasound 03/08/2022 DLP: 369.[address] scans at [facility] use at least one of these dose optimization techniques: automated exposure control; mA and/or kV adjustment per patient size (includes targeted exams where dose is matched to clinical indication); or iterative reconstruction. FINDINGS: Some images degraded due to beam hardening artifact from body habitus and shoulder overlap Markedly enlarged heterogeneous multinodular thyroid goiter LEFT greater than RIGHT. Diffuse heterogeneous enhancement. Substernal extension on the LEFT into the anterior mediastinum. Mass effect with splaying of the LEFT common carotid artery and RIGHT innominate. This also just abuts the adjacent upper thoracic spine. The LEFT thyroid lobe measures approximately 8.1 x 6.7 x 12.1 cm Multinodular RIGHT thyroid lobe measures approximately 6.4 x 3.4 x 8.8 cm AP by transverse by craniocaudal. Partially visualized paranasal sinuses are well aerated. Mastoid air cells are well aerated. Dental artifact degrades some images at the tongue base. Parotid glands are normal. No cervical lymphadenopathy. Normal posterior nasopharynx. Normal parapharyngeal fat. No evidence of supraglottic or glottic mass. LEFT to RIGHT mass effect on the trachea at the thoracic inlet with mild narrowing. Lung apices are well aerated. CT/CT neck w con* [id number] IMPRESSION: 1. Markedly enlarged heterogeneous multinodular goiter described above. LEFT l obe is larger than the RIGHT. Multinodular goiter measures larger compared to t he prior ultrasound although detailed comparison is difficult due to different modalities. 2. LEFT to RIGHT mass effect on the trachea with mild narrowing. 3. Substernal extension of the LEFT thyroid goiter into the anterior mediastin um. 4. Normal salivary glands. 5. No other acute findings.
[2025-02-24] MEDS: iohexol 350 mg/mL 500 mL Btl (per mL) IV (08:18)
== END 2025-02-24 07:26 | disposition home or self-care (01) ==
LOC: RAD 07:25
PROVIDERS: PCP Internal Medicine; Visit Provider Specialist
DX: E05.20 Thyrotoxicosis with toxic multinodular goiter without thyrotoxic crisis or storm (principal)
CPT/HCPCS: 70491

== ENCOUNTER 2025-03-26 05:00 | Outpatient (RCR) | payer MEDICARE, MEDICAID, SELFPAY | END 2025-04-25 23:59 | disposition home or self-care (01) | LOC: SPT 05:00 | PROVIDERS: PCP Internal Medicine; Visit Provider Specialist | DX: M17.12 Unilateral primary osteoarthritis, left knee (principal) | CPT/HCPCS: 97110; 97161 ==

== ENCOUNTER → 2025-03-31 13:41 | Outpatient (BNVA) | payer MEDICARE, MEDICAID, SELFPAY | PROVIDERS: PCP Internal Medicine; Visit Provider Internal Medicine Cardiovascular Disease | DX: I25.10 Atherosclerotic heart disease of native coronary artery without angina pectoris (principal); E78.5 Hyperlipidemia, unspecified; I10 Essential (primary) hypertension; G47.33 Obstructive sleep apnea (adult) (pediatric); Z87.891 Personal history of nicotine dependence | CPT/HCPCS: 99214 ==

== ENCOUNTER 2025-04-26 05:00 | Outpatient (RCR) | payer MEDICARE, MEDICAID, SELFPAY | END 2025-05-25 23:59 | disposition home or self-care (01) | LOC: SPT 05:00 | PROVIDERS: PCP Internal Medicine; Visit Provider Specialist | DX: M17.12 Unilateral primary osteoarthritis, left knee (principal) | CPT/HCPCS: 97110 ==

== ENCOUNTER 2025-05-26 05:00 | Outpatient (RCR) | payer MEDICARE, MEDICAID, SELFPAY | END 2025-06-25 23:59 | disposition home or self-care (01) | LOC: SPT 05:00 | PROVIDERS: PCP Internal Medicine; Visit Provider Specialist | DX: M17.12 Unilateral primary osteoarthritis, left knee (principal) | CPT/HCPCS: 97110 ==

== ENCOUNTER → 2025-06-09 13:11 | Outpatient (BNVA) | payer MEDICARE, MEDICAID, SELFPAY | PROVIDERS: PCP Internal Medicine; Visit Provider Specialist | DX: M17.12 Unilateral primary osteoarthritis, left knee (principal) | CPT/HCPCS: 73560; 73565; 99214 ==

== ENCOUNTER 2025-06-25 12:53 | Outpatient (CLI) | payer MEDICARE, MEDICAID, SELFPAY ==
--- NOTE | 2025-06-25 13:00 | MR_ITS ---
WS: [id number] MRI LEFT KNEE NONCONTRAST TECHNIQUE: Axial PD, coronal PD fat sat, coronal PD, sagittal PD, and sagittal PD fat-sat images obtained. CLINICAL INFORMATION: left knee pain COMPARISON: MRI 11/24/2024 FINDINGS: Some images degraded by motion Moderate tricompartmental arthritis advanced for a patient of this age Grade III chondromalacia patella. Hypertrophic patella. Distal quadriceps and patella tendons are intact. Small joint effusion. ACL and PCL appear intact. Medial and lateral patellar retinaculum appear intact. Medial and lateral collateral ligaments appear intact. Normal popliteal fossa. Lateral meniscus appears intact. Prior presumed partial medial meniscectomy with peripheral extrusion. Intrasubstance signal normality posterior horn medial meniscus appears new compared to previous. MR/MR knee LT wo con* [id number] IMPRESSION: Some images degraded by motion 1. Moderate tricompartment arthritis advanced for patient this age. 2. Grade III chondromalacia patella with small joint effusion. 3. Presumed prior partial medial meniscectomy with peripheral extrusion. 4. Intrasubstance signal abnormality posterior horn medial meniscus appears ne w compared to previous. 5. ACL and PCL appear intact. 6. No other acute findings. Findings are similar to previous. Outbridge grading: grade III: partial-thickness cartilage loss with focal ulcer ation
== END 2025-06-25 12:54 | disposition home or self-care (01) ==
LOC: RAD 12:54
PROVIDERS: PCP Internal Medicine; Visit Provider Specialist
DX: M17.12 Unilateral primary osteoarthritis, left knee (principal); M22.42 Chondromalacia patellae, left knee
CPT/HCPCS: 73721

== ENCOUNTER 2025-06-26 06:30 | Outpatient (RCR) | payer MEDICARE, MEDICAID, SELFPAY | END 2025-07-09 11:37 | disposition home or self-care (01) | LOC: SPT 06:30 | PROVIDERS: PCP Internal Medicine; Visit Provider Specialist | DX: M17.12 Unilateral primary osteoarthritis, left knee (principal) | CPT/HCPCS: 97110 ==

== ENCOUNTER 2025-07-06 11:42 | Outpatient (CLI) | payer MEDICARE, MEDICAID, SELFPAY ==
--- NOTE | 2025-07-06 11:51 | XR_ITS ---
WS: [id number] Exam: XR KUB [id number] Date/Time of Exam: 07/06/2025 12:09 PM Reason For Exam: BILATERAL NEPHROLITHIASIS Comparison 06/26/2024. No bowel obstruction or pneumoperitoneum. No sign of organ enlargement. No suspicious intra-abdominal calcification. Bony structures are intact. XR/XR KUB [id number] IMPRESSION: 1. Negative KUB.
== END 2025-07-06 11:43 | disposition home or self-care (01) ==
LOC: RAD 11:43
PROVIDERS: PCP Internal Medicine; Visit Provider Nurse Practitioner Family
DX: N20.0 Calculus of kidney (principal)
CPT/HCPCS: 74018

== ENCOUNTER → 2025-07-12 09:10 | Outpatient (BNVA) | payer MEDICARE, MEDICAID, SELFPAY | PROVIDERS: PCP Internal Medicine; Visit Provider Specialist | DX: M17.12 Unilateral primary osteoarthritis, left knee (principal) | CPT/HCPCS: 99214 ==